=== PATIENT | female | born 1955 | race Caucasian/White ===

== ENCOUNTER 2016-05-27 00:28 | Emergency (ER) | payer OTHER ==
[2016-05-27 01:07] VITALS: TEMP 97.5; BMI 32.2
--- NOTE | 2016-05-27 01:16 | PDOC ---
History of Present Illness - History of Present Illness Initial Comments: 05/27/16 02:11 Patient is a 60 year old female with significant medical hx of DM, HLD, and gastritis who is presenting to the ED with a day and a half of nausea, epigastric pain, vomiting, and diarrhea. Patient reports that a day and a half ago developing epigastric pain and nausea. This evening she began having multiple episodes of vomiting and watery bowel movements. The patient also endorses some subjective fevers. Subjective fevers. PMD: Precious Givens MD <Kamala Garland - Last Filed: 05/27/16 03:50> <Juan Centeno - Last Filed: 05/27/16 04:24> - General Chief Complaint: Nausea/Vomiting Stated Complaint: ABD PAIN/VOMITING Past History <Kamala Garland - Last Filed: 05/27/16 03:50> - Past Medical History Anemia: No Asthma: No Cancer: Yes (UTERUS-SURGERY AND RT) Cardiac Disorders: No CVA: No COPD: No CHF: No Dementia: No Diabetes: Yes (OVER 10 YRS) GI Disorders: Yes (GASTRITIS) Disorders: No HTN: No Hypercholesterolemia: Yes Liver Disease: No Seizures: No Thyroid Disease: No - Surgical History Abdominal Surgery: No Appendectomy: No Cardiac Surgery: No Cholecystectomy: Yes Lung Surgery: No Neurologic Surgery: No Orthopedic Surgery: No - Psycho/Social/Smoking Cessation Hx Anxiety: No Suicidal Ideation: No Smoking Status: No Smoking History: Never smoked Have you smoked in the past 12 months: No Number of Cigarettes Smoked Daily: 0 Hx Alcohol Use: No Drug/Substance Use Hx: No Substance Use Type: None, Prescribed Hx Substance Use Treatment: No <Juan Centeno - Last Filed: 05/27/16 04:24> - Past Medical History Allergies/Adverse Reactions: Allergies Allergy/AdvReac Type Severity Reaction Status Date / Time No Known Allergies Allergy Verified 05/27/16 01:05 Home Medications: Ambulatory Orders Atorvastatin Ca [Lipitor] 80 mg PO HS 05/27/16 Cholecalciferol (Vitamin D3) [Vitamin D3] 1 tab PO WEEKLY 05/27/16 Empagliflozin [Jardiance] 25 mg PO DAILY 05/27/16 Insulin Glargine,Hum.rec.anlog [[place] Solostar] 30 unit SQ 05/27/16 Lisinopril [Prinivil] 5 mg PO DAILY 05/27/16 Pregabalin [Lyrica -] 75 mg PO DAILY 05/27/16 Review of Systems - Review of Systems Comments:: 05/27/16 02:23 GENERAL/CONSTITUTIONAL: Subjective fever. No chills. No weakness. HEAD, EYES, EARS, NOSE AND THROAT: No change in vision. No ear pain or discharge. No sore throat. CARDIOVASCULAR: No chest pain or shortness of breath. RESPIRATORY: No cough, wheezing, or hemoptysis. GASTROINTESTINAL: Epigastric pain, nausea, vomiting, diarrhea. No constipation. GENITOURINARY: No dysuria, frequency, or change in urination. MUSCULOSKELETAL: No joint or muscle swelling or pain. No neck or back pain. SKIN: No rash NEUROLOGIC: No headache, vertigo, loss of consciousness, or change in strength/ sensation. <Kamala Garland - Last Filed: 05/27/16 03:50> *Physical Exam - Vital Signs Last Vital Signs Temp Pulse Resp BP Pulse Ox 97.5 F L 66 18 110/67 99 05/27/16 01:05 05/27/16 01:05 05/27/16 01:05 05/27/16 01:05 05/27/16 01:05 - Physical Exam Comments: 05/27/16 02:24 GENERAL: Awake, alert, and fully oriented, in no acute distress HEAD: No signs of trauma EYES: PERRLA, EOMI, sclera anicteric, conjunctiva clear ENT: Auricles normal inspection, hearing grossly normal, nares patent, oropharynx clear without exudates. Moist mucosa NECK: Normal ROM, supple, no lymphadenopathy, JVD, or masses LUNGS: Breath sounds equal, clear to auscultation bilaterally. No wheezes, and no crackles HEART: Regular rate and rhythm, normal S1 and S2, no murmurs, rubs or gallops ABDOMEN: Soft, nontender, normoactive bowel sounds. No guarding, no rebound. No masses EXTREMITIES: Normal range of motion, no edema. No clubbing or cyanosis. No cords, erythema, or tenderness NEUROLOGICAL: Cranial nerves II through XII grossly intact. Normal speech, normal gait SKIN: Warm, Dry, normal turgor, no rashes or lesions noted. ENDOCRINE: No increased thirst. No abnormal weight change. HEMATOLOGIC/LYMPHATIC: No anemia, easy bleeding, or history of blood clots. ALLERGIC/IMMUNOLOGIC: No hives or skin allergy. <Kamala Garland - Last Filed: 05/27/16 03:50> - Vital Signs Last Vital Signs Temp Pulse Resp BP Pulse Ox 97.5 F L 66 18 110/67 99 05/27/16 01:05 05/27/16 01:05 05/27/16 01:05 05/27/16 01:05 05/27/16 01:05 <Juan Centeno - Last Filed: 05/27/16 04:24> Heart Score/ECG Review - Electrocardiogram EKG: Non specific repolarization disturbance - Age Age: 45-65 - Risk Factors Risk Factors Heart Score: Yes Hx Hypercholesterolemia, Yes Hx Hypertension, Yes Hx Diabetes #1 General ECG Interpretation: Sinus Rhythm 05/27/16 04:23 NSR 75bpm, normal axis, no LVH, nonspecific T wave abnormality <Juan Centeno - Last Filed: 05/27/16 04:24> ED Treatment Course - LABORATORY CBC & Chemistry Diagram: 05/27/16 01:09 05/27/16 01:30 - ADDITIONAL ORDERS Additional order review: Laboratory Results 05/27/16 05/27/16 05/27/16 01:41 01:30 01:30 INR Sodium 139 Potassium 4.1 Chloride 99 Carbon Dioxide 26 Anion Gap 14 BUN 29 H D Creatinine 1.0 D Creat Clearance w eGFR 56.95 POC Glucometer 330.30321 Random Glucose 324 H* D Lactic Acid 1.703 Calcium 10.0 Phosphorus 3.3 Magnesium 2.2 Total Bilirubin 0.5 D AST 16 D ALT 27 D Alkaline Phosphatase 104 Creatine Kinase 100 Troponin I < 0.02 Total Protein 7.6 Albumin 4.0 Lipase 251 Urine Color Urine Appearance Urine pH Ur Specific [place] Urine Protein Urine Glucose (UA) Urine Ketones Urine Blood Urine Nitrite Urine Bilirubin Urine Urobilinogen Ur Leukocyte Esterase 05/27/16 05/27/16 01:30 01:09 INR 0.90 Sodium Potassium Chloride Carbon Dioxide Anion Gap BUN Creatinine Creat Clearance w eGFR POC Glucometer Random Glucose Lactic Acid Calcium Phosphorus Magnesium Total Bilirubin AST ALT Alkaline Phosphatase Creatine Kinase Troponin I Total Protein Albumin Lipase Urine Color Lt. yellow Urine Appearance Clear Urine pH 6.5 Ur Specific [place] <= 1.005 Urine Protein Negative Urine Glucose (UA) 3+ H Urine Ketones Trace H Urine Blood Trace-inta Urine Nitrite Negative Urine Bilirubin Negative Urine Urobilinogen 0.2 e.u/dl Ur Leukocyte Esterase Negative 05/27/16 05/27/16 01:41 01:09 RBC 4.54 MCV 88.1 MCHC 33.3 RDW 13.3 MPV 9.4 Neutrophils % 69.9 Lymphocytes % 23.4 Monocytes % 3.7 L Eosinophils % 1.9 Basophils % 1.1 POC Glucometer 330.63718 - RADIOLOGY Radiograph Interpretation: 05/27/16 03:50 Rn Ent: ([email or web address]) Report Date: 05/27/2016 01:46:00 Report Status: Preliminary Begin of Report Content Referring Physician: Juan Centeno Patient Name: Miriam Jane THIS IS A PRELIMINARY REPORT FROM [facility] EXAM: Ultrasound abdomen limited, right upper quadrant IMAGES: 37 INDICATION: Right upper quadrant pain DATE OF SERVICE: 2016-05-27 01:46:08.0 COMPARISON: none FINDINGS: The liver is mildly fatty, without mass or biliary duct dilation. There are multiple gallstones or sludge balls without secondary findings for cholecystitis. The CBD is not dilated and measures3 millimeters in diameter. Right kidney measures 10.8centimeters in length and is unremarkable. The visualized aorta and IVC are normal. Pancreas is obscured. IMPRESSION: Multiple gallstones or sludge balls without secondary findings of cholecystitis. Mildly fatty liver. THIS DOCUMENT HAS BEEN ELECTRONICALLY SIGNED Tucker Coughlin MD 05/27/2016 02:13 JASS Coello Please call Imaging Building Services Technician [phone] ([phone]) with questions. End of Report Content - Medications Given in the ED: ED Medications Discontinued Medications Generic Name Dose Route Start Last Admin Trade Name Freq PRN Reason Stop Dose Admin Pantoprazole Sodium 80 mg/ 100 mls @ 200 mls/hr 05/27/16 01:30 05/27/16 01:48 Sodium Chloride IVPB 05/27/16 01:59 200 mls/hr ONCE ONE Administration Ondansetron HCl 4 mg 05/27/16 01:28 05/27/16 01:48 Zofran Injection IVPUSH 05/27/16 01:29 4 mg ONCE ONE Administration <Kamala Garland - Last Filed: 05/27/16 03:50> - LABORATORY CBC & Chemistry Diagram: 05/27/16 01:09 05/27/16 01:30 <Juan Centeno - Last Filed: 05/27/16 04:24> Medical Decision Making - Medical Decision Making 05/27/16 04:17 This is a 60yo F with abdominal pain and nausea. She has a negative evaluation other than stones and sludge of the GB and LFT's are wnl. serum glucose elevated with mildly elevated anion gap and normal bicarb. She is encouraged to follow up with her PMD and referral to general surgeon. Will give analgesia and antiemetics; she did as well have an episode where she felt like her throat was "closing up" however, no objective findings. She also has very bad GERD and the symptoms have abated. She is encouraged to also refrain from fried, fatty foods. EKG is reassuring. <Juan Centeno - Last Filed: 05/27/16 04:24> *DC/Admit/Observation/Transfer - Attestations Scribe Attestion: 05/27/16 02:24 Documentation prepared by Kamala Garland, acting as emergency medical service coordinator for Juan Cetneno MD. <Kamala Garland - Last Filed: 05/27/16 03:50> - Discharge Dispostion Admit: No Decision to Admit order Date/Time: 05/27/16 04:14 - Attestations Physician Attestion: 05/27/16 04:16 I, Dr. Juan Centeno MD, attest that this document has been prepared under my direction and personally reviewed by me in its entirety. I further attest, that it accurately reflects all work, treatment, procedures and medical decision -making performed by me. <Juan Centeno - Last Filed: 05/27/16 04:24> Diagnosis at time of Disposition: Gallstone Qualifiers: Cholecystitis presence: without cholecystitis Biliary obstruction: without biliary obstruction Qualified Code(s): K80.20 - Calculus of gallbladder without cholecystitis without obstruction Abdominal pain Qualifiers: Abdominal location: epigastric Qualified Code(s): R10.13 - Epigastric pain Abdominal pain Qualifiers: Abdominal location: epigastric Qualified Code(s): R10.13 - Epigastric pain - Discharge Dispostion Disposition: HOME Condition at time of disposition: Good - Referrals Referrals: Precious Givens MD [Primary Care Provider] - - Patient Instructions Additional Instructions: At this time, there is evidence of gallstones without suggestion of infection. Please follow up with your PMD within the next 24 hours for reevaluation and if there is any change otherwise in your symptoms, please return immediately to the ED. It is important for you to refrain from any fatty/fried foods.
[2016-05-27] MEDS ORDERED: ONDANSETRON 4 MG/2 ML VIAL IVPUSH ONE (01:28)
[2016-05-27] MEDS ORDERED: PANTOPRAZOLE SODIUM 80 MG in SODIUM CHLORIDE 100 ML IVPB ONE (01:30)
[2016-05-27 01:35] LABS: BASOPHIL 1.1 % (0-2.0); EOSINOPHIL 1.9 % (0-4.5); MCH 29.3 pg (25.7-33.7); MCHC 33.3 g/dl (32.0-36.0); MEAN CELL VOLUME 88.1 fl (80-96); MEAN PLT VOLUME 9.4 fl (7.5-11.1); NEUTROPHILS 69.9 % (42.8-82.8); PLATELET COUNT 263 K/MM3 (134-434); RDW 13.3 % (11.6-15.6); WHITE BLOOD COUNT 11.8 K/mm3 (4.0-10.0)
[2016-05-27 01:40] LABS: PH,URINE 6.5 (5.0-8.0); URINE APPEARANCE CLEAR; URINE BILIRUBIN NEGATIVE (NEGATIVE); URINE BLOOD TRACE-INTA (NEGATIVE); URINE COLOR LT. YELLOW; URINE GLUCOSE (UA) 3+ (NEGATIVE); URINE KETONE TRACE (NEGATIVE); URINE LEUK ESTERASE NEGATIVE (NEGATIVE); URINE NITRITE NEGATIVE (NEGATIVE); URINE PROTEIN NEGATIVE (NEGATIVE); URINE UROBILINOGEN 0.2 E.U/dl E.U./dl (0.2-1.0)
[2016-05-27] MEDS ORDERED: ONDANSETRON 4 MG/2 ML VIAL ONE (01:44)
[2016-05-27] MEDS ORDERED: PANTOPRAZOLE SODIUM 40 MG VIAL ONE (01:45)
[2016-05-27] MEDS ORDERED: ASPIRIN 81 MG CHEWABLE TABLETS PO ONE (01:47)
[2016-05-27 01:51] LABS: INR 0.9 (0.82-1.09); PROTHROMBIN TIME (PATIENT) 9.9 SEC (9.98-11.88)
[2016-05-27 02:03] LABS: ALK PHOS 104 U/L (45-117); ANION GAP 14 (8-16); BILIRUBIN,TOTAL 0.5 mg/dL (0.2-1.0); CO2 26 mmol/L (21-32); MAGNESIUM 2.2 mg/dL (1.8-2.4); PHOSPHOROUS 3.3 mg/dL (2.5-4.9); SGOT/AST 16 U/L (15-37); SGPT/ALT 27 U/L (12-78); TOT PROT 7.6 g/dl (6.4-8.2); TROPONIN I < 0.02 ng/ml (0.00-0.05)
[2016-05-27 02:07] LABS: GLUCOSE,RANDOM 324 mg/dL (74-106)
[2016-05-27 04:30] VITALS: BP 124/64; PULSE 78
--- NOTE | 2016-05-31 10:13 | EKG ---
Test Reason : Blood Pressure : / mmHG Vent. Rate : 075 BPM Atrial Rate : 075 BPM P-R Int : 120 ms QRS Dur : 080 ms QT Int : 408 ms P-R-T Axes : 023 069 044 degrees QTc Int : 455 ms POOR DATA QUALITY, INTERPRETATION MAY BE ADVERSELY AFFECTED NORMAL SINUS RHYTHM NONSPECIFIC ST ABNORMALITY ABNORMAL ECG WHEN COMPARED WITH ECG OF 26-MAY-2015 08:29, NONSPECIFIC T WAVE ABNORMALITY NOW EVIDENT IN ANTERIOR LEADS Confirmed by MAHIN SETHI MD ([id number]) on 05/31/2016 10:12:45 AM Referred By: Confirmed By:MAHIN SETHI MD
== END 2016-05-27 04:30 | disposition home or self-care (01) ==
LOC: JER 00:28
PROC: 3E033GC Introduction of Other Therapeutic Substance into Peripheral Vein, Percutaneous Approach (ICD-10-PCS; principal; 2016-05-27)
DX: K80.20 Calculus of gallbladder without cholecystitis without obstruction (principal); I10 Essential (primary) hypertension; E11.9 Type 2 diabetes mellitus without complications; Z79.4 Long term (current) use of insulin; Z79.84 Long term (current) use of oral hypoglycemic drugs; E78.00 Pure hypercholesterolemia, unspecified
CPT/HCPCS: 36415; 76705-TC; 80053; 81003; 82550; 83605; 83690; 83735; 84100; 84484; 85025; 85610; 93005; 93010; 99283-25

== ENCOUNTER 2016-06-19 05:08 | Day surgery (SDC) | payer OTHER ==
[2016-06-17 11:03] VITALS: BMI 23.6
[~2016-06-19 05:08] MED LIST: BUPIVACAINE HCL/PF 0.5% (5MG/ML) 10 ML VIAL IJ ONE
[2016-06-19] MEDS ORDERED: LIDOCAINE HCL/PF 2% SDV 5ML VIAL ONE (12:51)
[2016-06-19] MEDS ORDERED: PROPOFOL 20 ML ONE (12:52)
[2016-06-19] MEDS ORDERED: ROCURONIUM BROMIDE 50 MG/5 ML VIAL ONE (12:52)
[2016-06-19] MEDS ORDERED: MIDAZOLAM HCL 2 MG/2 ML SINGLE DOSE VIAL ONE (12:52)
--- NOTE | 2016-06-19 13:10 | HP ---
History & Physical Update - History History: No Change - Physical Physical: No Change - Assessment Assessment: No Change - Plan Plan: No Change (60 yo F presents for planned laparoscopic cholecystectomy with Dr. Lawrence. No changes to H&P present in paper chart.)
[2016-06-19] MEDS ORDERED: ceFAZolin SODIUM 1 GM VIAL ONE (13:35)
[2016-06-19] MEDS ORDERED: ePHEDrine SULFATE 50 MG/1 ML AMPULE ONE (13:39)
[2016-06-19] MEDS ORDERED: ceFAZolin SODIUM 1 GM VIAL IVPB ONE (13:40)
[2016-06-19] MEDS ORDERED: DEXAMETHASONE SOD PHOSPHATE 4 MG/1 ML VIAL ONE (13:46)
[2016-06-19] MEDS ORDERED: ONDANSETRON 4 MG/2 ML VIAL ONE (13:46)
[2016-06-19] MEDS ORDERED: GLYCOPYRROLATE 0.2 MG/1 ML VIAL ONE ×2 (14:20→14:21)
[2016-06-19] MEDS ORDERED: NEOSTIGMINE METHYLSULFATE 0.5 MG/ML - 10 ML MDV ONE (14:20)
[2016-06-19] MEDS ORDERED: KETOROLAC TROMETHAMINE 30 MG/1 ML VIAL ONE (14:21)
[2016-06-19] MEDS ORDERED: BUPIVACAINE HCL/PF 0.5% (5MG/ML) 10 ML VIAL IJ ONE (14:22)
--- NOTE | 2016-06-19 14:40 | OP ---
Operative Note - Note: Operative Date: 06/19/16 Pre-Operative Diagnosis: biliary colic Operation: laparoscopic cholecystectomy Post-Operative Diagnosis: Same as Pre-op Surgeon: Ke Lawrence Installation Specialist: Jessenia Arevalo Anesthesia: General Estimated Blood Loss (mls): 10 Operative Report Dictated: Yes
--- NOTE | 2016-06-19 14:56 | SURG ---
Surgery Crude Oil Treater Note Crude Oil Treater: Jessenia Arevalo PA-C Date of Service: 06/19/16 Diagnosis: biliary colic Procedure: laparoscopic cholecystectomy I was present for the entirety of the operative procedure. For further detail, please refer to operative report. Visit type - Case Type Case Type: Scheduled Admission - Emergency Emergency Visit: No - New patient This patient is new to me today: Yes Date on this admission: 06/19/16 - Critical Care Critical Care patient: No
[2016-06-19] MEDS ORDERED: ACETAMINOPHEN 325 MG TABLET (FP) PO PRN (15:02)
[2016-06-19] MEDS ORDERED: ACETAMINOPHEN 1000 MG/100 ML VIAL (NON FORMULARY) IVPB ONE (15:02)
[2016-06-19] MEDS ORDERED: ONDANSETRON 4 MG/2 ML VIAL IVPUSH PRN (15:02)
[2016-06-19] MEDS ORDERED: oxyCODONE HCL 5 MG TABLET PO PRN (15:02)
[2016-06-19] MEDS ORDERED: LACTATED RINGERS SOLUTION 1,000 ML IV SCH (15:15)
[2016-06-19] MEDS ORDERED: ACETAMINOPHEN INJECTION 100 ML IVPB ONE (15:17)
--- NOTE | 2016-06-19 16:08 | OP ---
DATE OF OPERATION: 06/19/2016 PREOPERATIVE DIAGNOSIS: Biliary colic and cholelithiasis. POSTOPERATIVE DIAGNOSIS: Biliary colic and cholelithiasis. PROCEDURE: Laparoscopic cholecystectomy. SURGEON: MD Jonathan ASSISTANTS: DEREK Buck COMPLICATIONS: None. BLOOD LOSS: 10 mL. SPECIMENS: Gallbladder. CONDITION: Patient tolerated the procedure well. INDICATIONS: This is a 60-year-old female with a history of diabetes and hypertension, who presents with chronic right upper quadrant abdominal pain. On ultrasound, diagnosis was noted to be secondary to gallstones. The patient was brought to the operating room for a laparoscopic cholecystectomy. Risks and benefits were discussed in advance with patient. She agreed to proceed with the plan. DESCRIPTION OF PROCEDURE: In the operating room, she was placed in supine position. After the induction of general anesthesia, she was prepped and draped in the usual sterile fashion. After standard time-out, the operation was begun with a periumbilical incision approximately 2 cm performed with the scalpel. The fascia was entered. The peritoneal cavity was accessed via standard Linda approach. In the peritoneal cavity, then a 12-mm port was introduced and insufflation to a pressure of 15 mmHg was accomplished. At this point, under direct vision, three 5-mm ports were introduced, one in the epigastrium, two in the right upper quadrant. The patient was placed in a reverse Trendelenburg position. A few of the adhesions which were encountered were taken down sharply with EndoShears. The gallbladder was retracted superiorly and laterally. The infundibulum of the gallbladder appears to be somewhat scarred and thick in terms of the quality of the tissue. However, it was dissected with relative ease using cautery and occasionally with a [place] dissector to expose the cystic duct completely. After visualization of the cystic duct, cystic artery was similarly dissected and then completely exposed. At this point, then, after establishing clearly the critical view of safety with exposure of the cystic duct to the common bile duct junction, and cystic artery within the triangle of Calot, then, Endo-clips were used to ligate the cystic duct and cystic artery. They were doubly ligated with Endo-clips and then divided with EndoShears. The gallbladder was then dissected off the liver bed with the use of cautery. Minimal bleeding was encountered from the liver bed. Bleeding was controlled with cautery. Final check for hemostasis was performed. Peritoneal cavity was irrigated and suctioned. The gallbladder was placed in an EndoCatch bag and removed through the umbilical port. The fascia at the umbilical port was closed with 0 Vicryl sutures. The skin at all port sites was closed with 4-0 Monocryl. Dermabond was applied. The patient was returned to the recovery room awake, alert, and in stable condition. She tolerated the procedure well. Mode [id number]
[2016-06-19] MEDS ORDERED: METOCLOPRAMIDE HCL INJECTION 10 MG/2 ML VIAL ONE (16:18)
[2016-06-19] MEDS ORDERED: METOCLOPRAMIDE HCL INJECTION 10 MG/2 ML VIAL IM ONE (16:19)
[2016-06-19 17:42] VITALS: TEMP 98
[2016-06-19 20:16] VITALS: BP 140/60; PULSE 70
--- NOTE | 2016-06-21 13:22 | PATH ---
Surgical Pathology Report Patient Name: ANANDA SARABIA [facility]. Rec. #: [id number] /Age/Gender: 1955 (Age: 60) / F Account: [id number] Location: AMBULATORY SURG Taken: 06/19/2016 Received: 06/20/2016 Reported: 06/21/2016 Physicians: Ke Lawrence M.D. Specimen(s) Received GALLBLADDER Clinical History Biliary colic Final Diagnosis GALLBLADDER, CHOLECYSTECTOMY: CHRONIC CHOLECYSTITIS AND CHOLELITHIASIS. ONE BENIGN APPEARING LYMPH NODE. Electronically Signed Luis Valero M.D. Gross Description Received in formalin, labeled "gallbladder" is a 6.7 x 2.5 x 1.5 cm. gallbladder with a 0.2 cm in length portion of cystic duct attached. There is a 0.5 cm greatest dimension crook periductal lymph node present. The outer surface is crook green and varies from smooth to shaggy. The lumen contains green, tenacious bile as well as multiple black, irregular choleliths ranging from 0.1-0.5 cm in greatest dimension. The mucosa is green with focal erosions. The wall of the gallbladder averages 0.1 cm in thickness. Director Of Development And Marketing sections are submitted in one cassette. 06/20/201606/20/2016
== END 2016-06-19 19:35 | disposition home or self-care (01) ==
LOC: JASUSAT 05:08
PROVIDERS: ATTEND Surgery
PROC: 0FT44ZZ Resection of Gallbladder, Percutaneous Endoscopic Approach (ICD-10-PCS; principal; 2016-06-19 11:00)
DX: K80.50 Calculus of bile duct without cholangitis or cholecystitis without obstruction (principal); K80.20 Calculus of gallbladder without cholecystitis without obstruction
CPT/HCPCS: 88304-TC; 94760

== ENCOUNTER 2016-11-29 07:00 | Day surgery (SDC) | payer OTHER ==
[2016-11-29 07:34] VITALS: BMI 23.6
[2016-11-29] MEDS ORDERED: LIDOCAINE HCL 2% (20ML MULTI-DOSE VIAL) NR ONE (08:08)
[2016-11-29 09:01] VITALS: TEMP 97.5
[2016-11-29 09:49] VITALS: BP 148/62; PULSE 65
--- NOTE | 2016-12-02 13:19 | PATH ---
Surgical Pathology Report Patient Name: ANANDA SARABIA [facility]. Rec. #: [id number] /Age/Gender: 1955 (Age: 60) / F Account: [id number] Location: U-ENDOSCOPY Taken: 11/29/2016 Received: 11/29/2016 Reported: 12/02/2016 Physicians: Dony Cardenas M.D. Specimen(s) Received A: BX STOMACH B: BX POLYPS DESCENDING COLON C: BX POLYPS TRANSVERSE COLON D: BX RIGHT COLON Clinical History Epigastric pain Erosive gastritis, rectosigmoid colitis, polyp, redundant colon, hemorrhoids Final Diagnosis A. STOMACH, BIOPSY: GASTRIC FUNDIC MUCOSA WITH FOCAL HYPERPLASTIC CHANGES. IMMUNOSTAIN FOR H. PYLORI IS NEGATIVE. B. COLON, DESCENDING, BIOPSY: TUBULAR ADENOMA. C. COLON, TRANSVERSE, BIOPSY: TUBULAR ADENOMA. D. COLON, LEFT, BIOPSY: COLONIC MUCOSA WITH FOLLICULAR HYPERPLASIA OF MUCOSA ASSOCIATED LYMPHOID TISSUE. NO ADENOMATOUS CHANGES IDENTIFIED. Electronically Signed Jose Luis Tellez M.D. Gross Description A. Received in formalin, labeled "biopsy stomach" are 2 crook, irregular portions of soft tissue measuring 0.2 and 0.4 cm. in greatest dimension. The specimens are submitted in toto in one cassette. B. Received in formalin, labeled "polyps descending colon" are 2 crook, irregular to polypoid portions of soft tissue measuring 0.3 and 0.5 cm. in greatest dimension. The specimens are submitted in toto in one cassette. C. Received in formalin, labeled "polyp transverse colon" is a crook, irregular portion of soft tissue measuring 0.3 cm. in greatest dimension. The specimen is submitted in toto in one cassette. D. Received in formalin, labeled "biopsy left colon" are 4 crook, irregular portions of soft tissue ranging from 0.2-0.6 cm. in greatest dimension. The specimens are submitted in toto in one cassette. 11/29/201611/29/2016
== END 2016-11-29 09:59 | disposition home or self-care (01) ==
LOC: JASU-ENDO 07:00
PROVIDERS: ATTEND Internal Medicine Gastroenterology
PROC: 0DBL8ZX Excision of Transverse Colon, Via Natural or Artificial Opening Endoscopic, Diagnostic (ICD-10-PCS; 2016-11-29)
PROC: 0DB68ZX Excision of Stomach, Via Natural or Artificial Opening Endoscopic, Diagnostic (ICD-10-PCS; 2016-11-29)
PROC: 0DBM8ZX Excision of Descending Colon, Via Natural or Artificial Opening Endoscopic, Diagnostic (ICD-10-PCS; principal; 2016-11-29 08:00)
DX: K52.9 Noninfective gastroenteritis and colitis, unspecified (principal); D12.4 Benign neoplasm of descending colon; D12.3 Benign neoplasm of transverse colon; K64.8 Other hemorrhoids; K29.60 Other gastritis without bleeding
CPT/HCPCS: 88305-TC; 88342-TC

== ENCOUNTER 2017-07-07 15:06 | Inpatient (IN) | payer OTHER ==
--- NOTE | 2017-07-07 15:24 | PDOC ---
Rapid Medical Evaluation Time Seen by Provider: 07/07/17 15:19 Medical Evaluation: Allergies Allergy/AdvReac Type Severity Reaction Status Date / Time No Known Allergies Allergy Verified 06/19/16 09:33 I have performed a brief in-person evaluation of this patient. The patient presents with a chief complaint of: sent by Dr. King for admission to Dr. Givens for wound/PVD Pertinent physical exam findings: necrosis to tip of right big toe with surrounding erythema I have ordered the following: labs, foot xray, doppler LE The patient will proceed to the ED for further evaluation.
[2017-07-07 15:25] VITALS: BMI 21.9
[2017-07-07 16:22] LABS: BASO % 1.3 % (0-2.0); EOS % 2.9 % (0-4.5); HEMATOCRIT 37.5 % (32.4-45.2); HEMOGLOBIN 12.7 GM/dL (10.7-15.3); LYMPH % 32.3 % (8-40); MCH 30.7 pg (25.7-33.7); MEAN CELL VOLUME 90.3 fl (80-96); MEAN PLT VOLUME 8.1 fl (7.5-11.1); MONO % 5.9 % (3.8-10.2); NEUT % 57.6 % (42.8-82.8); PLATELET COUNT 331 K/MM3 (134-434); RBC 4.15 M/mm3 (3.60-5.2); RDW 13.7 % (11.6-15.6); WHITE BLOOD COUNT 6.5 K/mm3 (4.0-10.0)
[2017-07-07 16:52] LABS: ALBUMIN 3.7 g/dl (3.4-5.0); ANION GAP 2 (8-16); BILIRUBIN,TOTAL 0.3 mg/dL (0.2-1.0); BLOOD UREA NITROGEN 21 mg/dL (7-18); CALCIUM 9.1 mg/dL (8.5-10.1); CHLORIDE 108 mmol/L (98-107); CO2 28 mmol/L (21-32); CREATININE 0.7 mg/dL (0.55-1.02); GLUCOSE,RANDOM 159 mg/dL (74-106); SGPT/ALT 32 U/L (12-78); SODIUM 138 mmol/L (136-145); TOT PROT 8.1 g/dl (6.4-8.2)
[2017-07-07 16:53] LABS: ALK PHOS 118 U/L (45-117)
[2017-07-07 16:58] LABS: POTASSIUM 4.6 mmol/L (3.5-5.1); SGOT/AST 26 U/L (15-37)
--- NOTE | 2017-07-07 17:31 | PDOC ---
History of Present Illness - General History Source: Patient Exam Limitations: No Limitations - History of Present Illness Initial Comments: 07/07/17 20:02 The patient is a 61 year old female with a significant past medical history of diabetes, gastritis, HTN, and HLD who presents to the emergency department for evaluation of supposed left foot infection. The patient was seen by her food service helper Dr. King today, where he observed purulent drainage from left big toe, necrotic tip of left toe, and erythema on left foot up to ankle, which prompted him to refer the patient to the emergency department for IV antibiotics. Dr. King also requested further consults due to concern for peripheral vascular disease. The patient reports associated symptom of chills. She denies chest pain, shortness of breath, headache, and dizziness. Denies fevers, nausea, vomiting, diarrhea, and constipation. Denies dysuria, frequency, urgency, and hematuria. Allergies: NKA Past surgical history: Cholecystectomy (06/24), Hysterectomy () Social history: No reported cigarette, alcohol, or drug use. PCP: Dr. Givens <Levy Kirby - Last Filed: 07/07/17 20:02> <Lelo Lott - Last Filed: 07/07/17 20:55> - General Chief Complaint: Wound Stated Complaint: admission SEND BY MD Time Seen by Provider: 07/07/17 15:19 Past History <Levy Kirby - Last Filed: 07/07/17 20:02> - Past Medical History Anemia: No Asthma: No Cancer: Yes (UTERUS-SURGERY AND RT??) Cardiac Disorders: No CVA: No COPD: No CHF: No Dementia: No Diabetes: Yes GI Disorders: Yes (GASTRITIS, ADHESIONS) Disorders: No HTN: Yes Hypercholesterolemia: Yes Liver Disease: No Seizures: No Thyroid Disease: No - Surgical History Abdominal Surgery: No Appendectomy: No Cardiac Surgery: No Cholecystectomy: Yes (06/24) Lung Surgery: No Neurologic Surgery: No Orthopedic Surgery: No - Suicide/Smoking/Psychosocial Hx Smoking Status: No Smoking History: Never smoked Have you smoked in the past 12 months: No Number of Cigarettes Smoked Daily: 0 Information on smoking cessation initiated: No Hx Alcohol Use: No Drug/Substance Use Hx: No Substance Use Type: None, Prescribed Hx Substance Use Treatment: No <Lelo Lott - Last Filed: 07/07/17 20:55> - Past Medical History Allergies/Adverse Reactions: Allergies Allergy/AdvReac Type Severity Reaction Status Date / Time No Known Allergies Allergy Verified 07/07/17 15:21 Home Medications: Ambulatory Orders Atorvastatin Ca [Lipitor] 80 mg PO HS 05/27/16 Cholecalciferol (Vitamin D3) [Vitamin D3] 1 tab PO WEEKLY 05/27/16 Empagliflozin [Jardiance] 25 mg PO DAILY 05/27/16 Insulin Glargine,Hum.rec.anlog [[place] Solostar] 45 unit SQ HS 05/27/16 Lisinopril [Prinivil] 5 mg PO DAILY 05/27/16 Pregabalin [Lyrica -] 75 mg PO DAILY 05/27/16 Review of Systems - Review of Systems Able to Perform ROS?: Yes Comments:: CONSTITUTIONAL: (+)Chills. Absent: fever, diaphoresis, generalized weakness, malaise, loss of appetite HEENT: Absent: rhinorrhea, nasal congestion, throat pain, throat swelling, difficulty swallowing, mouth swelling, ear pain, eye pain, visual Changes CARDIOVASCULAR: Absent: chest pain, syncope, palpitations, irregular heart rate, lightheadedness , peripheral edema RESPIRATORY: Absent: cough, shortness of breath, dyspnea with exertion, orthopnea, wheezing, stridor, hemoptysis GASTROINTESTINAL: Absent: abdominal pain, abdominal distension, nausea, vomiting, diarrhea, constipation, melena, hematochezia GENITOURINARY: Absent: dysuria, frequency, urgency, hesitancy, hematuria, flank pain, genital pain MUSCULOSKELETAL: Absent: myalgia, arthralgia, joint swelling EXTREMITIES: (+)Left foot erythema. SKIN: Absent: rash, itching, pallor HEMATOLOGIC/IMMUNOLOGIC: Absent: easy bleeding, easy bruising, lymphadenopathy, frequent infections ENDOCRINE: Absent: unexplained weight gain, unexplained weight loss, heat intolerance, cold intolerance NEUROLOGIC: Absent: headache, focal weakness or paresthesias, dizziness, unsteady gait, seizure, mental status changes, bladder or bowel incontinence PSYCHIATRIC: Absent: anxiety, depression, suicidal or homicidal ideation, hallucinations. <Levy Kirby - Last Filed: 07/07/17 20:02> *Physical Exam - Vital Signs Last Vital Signs Temp Pulse Resp BP Pulse Ox 98.5 F 76 18 128/67 98 07/07/17 15:21 07/07/17 19:24 07/07/17 19:24 07/07/17 19:24 07/07/17 19:24 - Physical Exam Comments: GENERAL: Well developed, well nourished. Awake and alert. No acute distress. HEENT: Normocephalic, atraumatic. PERRLA, EOMI. No conjunctival pallor. Sclera are non- icteric. Moist mucous membranes. Oropharynx is clear. NECK: Supple. Full ROM. No JVD. Carotid pulses 2+ and symmetric, without bruits. No thyromegaly. No lymphadenopathy. CARDIOVASCULAR: Regular rate and rhythm. No murmurs, rubs, or gallops. Distal pulses are 2+ and symmetric. PULMONARY: No evidence of respiratory distress. Lungs clear to auscultation bilaterally. No wheezing, rales or rhonchi. ABDOMINAL: Soft. Non-tender. Non-distended. No rebound or guarding. No organomegaly. Normoactive bowel sounds. MUSCULOSKELETAL Normal range of motion at all joints. No bony deformities or tenderness. No CVA tenderness. EXTREMITIES: (+) Cellulitic left foot. (+)Necrotic tip of toe on left foot. (+)Left foot erythematous up to ankle. SKIN: Warm and dry. Normal capillary refill. No rashes. No jaundice. NEUROLOGICAL: Alert, awake, appropriate. Cranial nerves 2-12 intact. No deficits to light touch and temperature in face, upper extremities and lower extremities. No motor deficits in the in face, upper extremities and lower extremities. Normoreflexic in the upper and lower extremities. Normal speech. Toes are down- going bilaterally. PSYCHIATRIC: Cooperative. Good eye contact. Appropriate mood and affect. <Levy Kirby - Last Filed: 07/07/17 20:02> - Vital Signs Last Vital Signs Temp Pulse Resp BP Pulse Ox 98.5 F 78 18 148/66 100 07/07/17 15:21 07/07/17 15:21 07/07/17 15:21 07/07/17 15:21 07/07/17 15:21 <Lelo Lott - Last Filed: 07/07/17 20:55> ED Treatment Course - LABORATORY CBC & Chemistry Diagram: 07/07/17 16:12 07/07/17 16:12 - ADDITIONAL ORDERS Additional order review: Laboratory Results 07/07/17 16:12 Sodium 138 Potassium 4.6 Chloride 108 H Carbon Dioxide 28 Anion Gap 2 L BUN 21 H Creatinine 0.7 Creat Clearance w eGFR > 60 Random Glucose 159 H Calcium 9.1 Total Bilirubin 0.3 D AST 26 ALT 32 Alkaline Phosphatase 118 H Total Protein 8.1 Albumin 3.7 07/07/17 16:12 RBC 4.15 MCV 90.3 MCHC 34.0 RDW 13.7 MPV 8.1 D Neutrophils % 57.6 Lymphocytes % 32.3 D Monocytes % 5.9 Eosinophils % 2.9 Basophils % 1.3 - Medications Given in the ED: ED Medications Discontinued Medications Generic Name Dose Route Start Last Admin Trade Name Freq PRN Reason Stop Dose Admin Piperacillin Sod/Tazobactam 50 mls @ 100 mls/hr 07/07/17 19:15 07/07/17 19:38 Sod 3.375 gm/ Dextrose IVPB 07/07/17 19:44 100 mls/hr ONCE ONE Administration Protocol <Levy Kirby - Last Filed: 07/07/17 20:02> - LABORATORY CBC & Chemistry Diagram: 07/07/17 16:12 07/07/17 16:12 - ADDITIONAL ORDERS Additional order review: Laboratory Results 07/07/17 16:12 Sodium 138 Potassium 4.6 Chloride 108 H Carbon Dioxide 28 Anion Gap 2 L BUN 21 H Creatinine 0.7 Creat Clearance w eGFR > 60 Random Glucose 159 H Calcium 9.1 Total Bilirubin 0.3 D AST 26 ALT 32 Alkaline Phosphatase 118 H Total Protein 8.1 Albumin 3.7 07/07/17 16:12 RBC 4.15 MCV 90.3 MCHC 34.0 RDW 13.7 MPV 8.1 D Neutrophils % 57.6 Lymphocytes % 32.3 D Monocytes % 5.9 Eosinophils % 2.9 Basophils % 1.3 <Lelo Lott - Last Filed: 07/07/17 20:55> Medical Decision Making - Medical Decision Making 07/07/17 17:31 11-year-old female referred for admission food service helper, Dr. Nakul KING on ultrasound to be admitted by her PCP, Dr GIVENS He is requesting a vascular surgical consult for evaluation. Peripheral circulation Infectious disease consult for wound care, CBC, sedimentation rate, chemistry, hemoglobin H1 CVA, foot x-rays 3 views, Dr. of her lower extremities and Zantac and dressing to the left foot daily. It is paced to Dr. Kenyatta García who said that Dr. HERNANDEZ TO admit. However, since it is past 5:00 this will be a hospitalist admission. Well-nourished well-developed Vietnamese-speaking 61-year-old female in no acute distress 07/07/17 20:[address] Zavala, the radiologist and the arterial Doppler did not show any significant peripheral vascular disease <Lelo Lott - Last Filed: 07/07/17 20:55> *DC/Admit/Observation/Transfer - Attestations Scribe Attestion: Documentation prepared by Levy Kirby, acting as diploma medical assistant for Lelo Lott MD. <Levy Kirby - Last Filed: 07/07/17 20:02> - Discharge Dispostion Admit: Yes <Lelo Lott - Last Filed: 07/07/17 20:55> Diagnosis at time of Disposition: Diabetic foot infection Cellulitis Qualifiers: Site of cellulitis: extremity Site of cellulitis of extremity: toe Laterality: left Qualified Code(s): L03.032 - Cellulitis of left toe
[2017-07-07] MEDS ORDERED: PIPERACILLIN/TAZOB 3.375 GM 3.375 GM in DEXTROSE 5%-WATER - 50 ML IVPB ONE (19:15)
[2017-07-07 19:24] LABS: ERYTHROCYTE SEDIMENTATION RATE 50 mm/hr (0-30)
[2017-07-07] MEDS ORDERED: VANCOMYCIN 1 GM PREMIX - 1 GM/200 ML BAG IVPB ONE (19:35)
[2017-07-07] MEDS ORDERED: PIPERACILLIN/TAZOB 3.375 GM 3.375 GM/50 ML BAG IVPB ONE (19:36)
--- NOTE | 2017-07-07 19:45 | HP ---
Admitting History and Physical - Primary Care Physician PCP: Romario Foster - Admission Chief Complaint: L- Foot Pain, Swelling, Numbness History of Present Illness: 61 y/o woman PMH Uterine Ca (surgery, ?RT), DM, HTN, HLD, Gastritis. Who presents to the ED from the [employer]'s office for admission, left toe Necrosis , erythema, swelling, pain to left foot. Patient reports that her left foot and left toe #2 has been painful, swollen, reddened x 2 weeks. Patient reports wearing sandals at home, not walking barefoot. Patient denies fall or trauma. Patient reports having constant numbness and tingling to her feet which she attributes to her Diabetes. Patient reports having subjective fevers and chills at home. Patient denies cough, SOB, dizziness, GEORGE, CP, palpitations, AP, N/V/D, constipation, dysuria. History Source: Patient, Significant Other, Medical Record Limitations to Obtaining History: No Limitations - Past Medical History Cardiovascular: Yes: HTN, Hyperlipdemia Gastrointestinal: Yes: Gastritis Hepatobiliary: Yes: Cholelithiasis Endocrine: Yes: Diabetes Mellitus - Past Surgical History Past Surgical History: Yes: Cholecystectomy - Smoking History Smoking history: Never smoked Have you smoked in the past 12 months: No Aproximately how many cigarettes per day: 0 - Alcohol/Substance Use Hx Alcohol Use: No History of Substance Use: reports: None - Social History Usual Living Arrangement: Yes: With Spouse ADL: Independent History of Recent Travel: No Home Medications - Allergies Allergies/Adverse Reactions: Allergies Allergy/AdvReac Type Severity Reaction Status Date / Time No Known Allergies Allergy Verified 07/07/17 15:21 - Home Medications Home Medications: Ambulatory Orders Atorvastatin Ca [Lipitor] 80 mg PO HS 05/27/16 Cholecalciferol (Vitamin D3) [Vitamin D3] 1 tab PO WEEKLY 05/27/16 Empagliflozin [Jardiance] 25 mg PO DAILY 05/27/16 Insulin Glargine,Hum.rec.anlog [[place]] 45 unit SQ HS 05/27/16 Lisinopril [Prinivil] 5 mg PO DAILY 05/27/16 Pregabalin [Lyrica -] 75 mg PO DAILY 05/27/16 Home Medications (free text): Updated Med List from patient: Lipitor 80mg po HS. Jardiance 25mg po Daily. Insulin Glargine, Hum. rec. 50 unit SQ HS. Lisinopril 5mg po Daily. Lyrica 75mg po Daily Family Disease History - Family Disease History Family History: Unable to Obtain Review of Systems - Review of Systems Constitutional: reports: Chills, Fever Eyes: reports: No Symptoms HENT: reports: No Symptoms Neck: reports: No Symptoms Cardiovascular: reports: No Symptoms Respiratory: reports: No Symptoms Gastrointestinal: reports: No Symptoms Genitourinary: reports: No Symptoms Breasts: reports: No Symptoms Reported Musculoskeletal: reports: Extremity Pain, Joint Swelling Integumentary: reports: Change in Color, Erythema, Wound Neurological: reports: Numbness Endocrine: reports: No Symptoms Hematology/Lymphatic: reports: No Symptoms Psychiatric: reports: No Symptoms Pain Intensity: 8 Physical Examination Vital Signs: Vital Signs Temperature 98.5 F 07/07/17 15:21 Pulse Rate 76 07/07/17 19:24 Respiratory Rate 18 07/07/17 19:24 Blood Pressure 128/67 07/07/17 19:24 O2 Sat by Pulse Oximetry (%) 98 07/07/17 19:24 Constitutional: Yes: Well Nourished, No Distress, Calm Eyes: Yes: WNL, Conjunctiva Clear, PERRL HENT: Yes: WNL, Atraumatic, Normocephalic Neck: Yes: WNL, Supple, Trachea Midline Cardiovascular: Yes: WNL, Regular Rate and Rhythm, S1, S2 Respiratory: Yes: WNL, Regular, CTA Bilaterally Gastrointestinal: Yes: Normal Bowel Sounds, Soft, Tenderness (RUQ) ...Rectal Exam: Yes: Deferred Renal/: Yes: WNL Breast(s): Yes: WNL Musculoskeletal: Yes: WNL Extremities: Yes: Erythema (L-foot), Other ((+) Cellulitic left foot. (+) Necrotic tip of toe on left foot. (+)Left foot erythematous up to ankle) Edema: Yes Edema: LLE: 1+ (foot) Peripheral Pulses WNL: Yes Integumentary: Yes: Erythema (left foot) Wound/Incision: Yes: Reddened, Other (necrosis- eschar to left toe) Neurological: Yes: WNL, Alert, Oriented ...Motor Strength: WNL Psychiatric: Yes: WNL, Alert, Oriented Labs: CBC, BMP 07/07/17 16:12 07/07/17 16:12 Laboratory Results - last 24 hr 07/07/17 07/07/17 07/07/17 16:12 16:12 20:55 WBC 6.5 D RBC 4.15 Hgb 12.7 Hct 37.5 MCV 90.3 MCH 30.7 MCHC 34.0 RDW 13.7 Plt Count 331 D MPV 8.1 D Neutrophils % 57.6 Lymphocytes % 32.3 D Monocytes % 5.9 Eosinophils % 2.9 Basophils % 1.3 ESR 50 H PT with INR 10.40 INR 0.92 PTT (Actin FS) Sodium 138 Potassium 4.6 Chloride 108 H Carbon Dioxide 28 Anion Gap 2 L BUN 21 H Creatinine 0.7 Creat Clearance w eGFR > 60 Random Glucose 159 H Calcium 9.1 Total Bilirubin 0.3 D AST 26 ALT 32 Alkaline Phosphatase 118 H Total Protein 8.1 Albumin 3.7 Blood Type Antibody Screen 07/07/17 07/07/17 20:55 20:55 WBC RBC Hgb Hct MCV MCH MCHC RDW Plt Count MPV Neutrophils % Lymphocytes % Monocytes % Eosinophils % Basophils % ESR PT with INR INR PTT (Actin FS) 34.4 Sodium Potassium Chloride Carbon Dioxide Anion Gap BUN Creatinine Creat Clearance w eGFR Random Glucose Calcium Total Bilirubin AST ALT Alkaline Phosphatase Total Protein Albumin Blood Type A POSITIVE Antibody Screen Negative Intake & Output 07/05/17 07/06/17 07/07/17 07/08/17 23:59 23:59 23:59 23:59 Weight 59.874 kg Current Medications Generic Name Dose Route Start Last Admin Trade Name Adriaq PRN Reason Stop Dose Admin Atorvastatin Calcium 80 mg 07/07/17 22:00 07/07/17 23:54 Lipitor - PO 80 mg HS [facility] Administration Heparin Sodium (Porcine) 5,000 unit 07/07/17 22:00 07/07/17 23:26 Heparin - SQ Not Given BID [facility] Piperacillin Sod/Tazobactam 50 mls @ 100 mls/hr 07/08/17 02:00 Sod 3.375 gm/ Dextrose IVPB Q8H-IV [facility] Protocol Piperacillin Sod/Tazobactam 50 mls @ 100 mls/hr 07/08/17 02:00 Sod 3.375 gm/ Dextrose IVPB 05/01/18 02:29 ONCE ONE Vancomycin HCl 1,000 mg/ 250 mls @ 166.667 mls/hr 07/08/17 10:00 Dextrose IVPB Q12H COUNT INCLUDES THE [facility] Protocol Lisinopril 5 mg 07/08/17 10:00 Prinivil PO DAILY [facility] Pregabalin 75 mg 07/08/17 10:00 Lyrica - PO DAILY [facility] Imaging - Results Chest X-ray: Image Reviewed X-ray: Image Reviewed Ultrasound: Image Reviewed EKG: Pending Problem List - Problems (1) Diabetic foot infection Assessment/Plan: - ESR-50 - No leukocytosis, no neutrophlia - Left foot/ankle xray- image reviewed, report pending - Duplex artery left foot- image reviewed, awaiting report - Zosyn, Vancomycin given in ED, continue - ID Consult - Vascular Consult probable debridement - Wound Care - Neurochecks - Elevate extremity - CBCD, BMP in am Code(s): E11.628 - TYPE 2 DIABETES MELLITUS WITH OTHER SKIN COMPLICATIONS; L08.9 - LOCAL INFECTION OF THE SKIN AND SUBCUTANEOUS TISSUE, UNSP (2) Cellulitis Assessment/Plan: - ESR 50 - Blood Cultures-pending - Zosyn, Vancomycin given in ED, will continue - Appreciate ID consult - Monitor CBC, BMP - Monitor vitals - Elevate extremity Code(s): L03.90 - CELLULITIS, UNSPECIFIED Qualifiers: Site of cellulitis: extremity Site of cellulitis of extremity: toe Laterality: left Qualified Code(s): L03.032 - Cellulitis of left toe (3) Diabetes mellitus Assessment/Plan: - Stable - BGMs - ISS when diet is resumed - Hold Jardiance for tighter glycemic control Code(s): E11.9 - TYPE 2 DIABETES MELLITUS WITHOUT COMPLICATIONS (4) HTN (hypertension) Assessment/Plan: - Stable - Monitor BP - Continue Lisinopril - Monitor renal function Code(s): I10 - ESSENTIAL (PRIMARY) HYPERTENSION (5) HLD (hyperlipidemia) Assessment/Plan: - Continue Lipitor Code(s): E78.5 - HYPERLIPIDEMIA, UNSPECIFIED (6) DVT prophylaxis Assessment/Plan: - OOB - Heparin SQ Code(s): [id number] - Assessment/Plan 61 y/o woman PMH DM, HTN, HLD, Gastritis, Uterine Ca (Surgery, ?RT). Admitted for Toe Necrosis, Cellulitis Visit type - Emergency Visit Emergency Visit: Yes ED Registration Date: 07/07/17 Care time: The patient presented to the Emergency Department on the above date and was hospitalized for further evaluation of their emergent condition. - New Patient This patient is new to me today: Yes Date on this admission: 07/07/17 - Critical Care Critical Care patient: No Hospitalist Screening - Colonoscopy Questionnaire Colonoscopy Questionnaire: Colonoscopy Questionnaire - Patient: 50 - 75 years old and never had a screening colonoscopy: No History of colon or rectal polyps, or CA: No History of IBD, Crohn's disease or UC: No History of abdominal radiation therapy as a child: No - Relative: 1 with colon or rectal CA, or polyps at age 60 or younger: No Colon or rectal CA diagnosed at age 45 or younger: No Multiple relatives with colon or rectal CA: No - Outcome: Screening Result: Negative Screen
[2017-07-07] MEDS ORDERED: VANCOMYCIN 1 GRAM (PRE-DOCKED) 1,000 MG/250 ML BAG IVPB ONE (20:44)
[2017-07-07 21:52] LABS: INR 0.92 (0.82-1.09); PROTHROMBIN TIME (PATIENT) 10.4 SEC (9.7-13.0)
[2017-07-07] MEDS: HEPARIN NA (PORCINE) 5,000 UNITS/ML 1ML VIAL SQ SCH (23:26)
[2017-07-07] MEDS: ATORVASTATIN CA 80 MG TABLET (FP) PO SCH (23:54)
[2017-07-08] MEDS ORDERED: DEXTROSE 5%-WATER - 50 ML IVPB ONE ×2 (00:45→13:07)
[2017-07-08] MEDS ORDERED: PIPERACILLIN/TAZOBACTAM 3.375 GM VIAL IVPB ONE ×2 (00:45→13:06)
[2017-07-08] MEDS ORDERED: PIPERACILLIN/TAZOB 3.375 GM 3.375 GM in DEXTROSE 5%-WATER - 50 ML IVPB SCH (02:00)
[2017-07-08] MEDS ORDERED: PIPERACILLIN/TAZOB 3.375 GM 3.375 GM in DEXTROSE 5%-WATER - 50 ML IVPB ONE (02:00)
[2017-07-08 07:35] LABS: BASO % 0.5 % (0-2.0); HEMATOCRIT 34.5 % (32.4-45.2); HEMOGLOBIN 11.6 GM/dL (10.7-15.3); LYMPH % 33.4 % (8-40); MCH 30.4 pg (25.7-33.7); MCHC 33.7 g/dl (32.0-36.0); MEAN CELL VOLUME 90.3 fl (80-96); MEAN PLT VOLUME 7.9 fl (7.5-11.1); MONO % 7.2 % (3.8-10.2); NEUT % 55.9 % (42.8-82.8); PLATELET COUNT 307 K/MM3 (134-434); RBC 3.82 M/mm3 (3.60-5.2); RDW 13.5 % (11.6-15.6); WHITE BLOOD COUNT 6.4 K/mm3 (4.0-10.0)
--- NOTE | 2017-07-08 08:41 | PN ---
Progress Note, Physician - Current Medication List Current Medications: Active Medications Atorvastatin Calcium (Lipitor -) 80 mg PO HS [facility] Last Admin: 07/07/17 23:54 Dose: 80 mg Heparin Sodium (Porcine) (Heparin -) 5,000 unit SQ BID [facility] Last Admin: 07/07/17 23:26 Dose: Not Given Piperacillin Sod/Tazobactam (Sod 3.375 gm/ Dextrose) 50 mls @ 100 mls/hr IVPB Q8H-IV [facility] PRN Reason: Protocol Vancomycin HCl 1,000 mg/ (Dextrose) 250 mls @ 166.667 mls/hr IVPB Q12H [facility] PRN Reason: Protocol Lisinopril (Prinivil) 5 mg PO DAILY [facility] Pregabalin (Lyrica -) 75 mg PO DAILY [facility] - Objective Vital Signs: Vital Signs Temperature 98.1 F 07/08/17 08:30 Pulse Rate 76 07/08/17 08:30 Respiratory Rate 20 07/08/17 08:30 Blood Pressure 114/59 07/08/17 08:30 O2 Sat by Pulse Oximetry (%) 98 07/07/17 23:00 Labs: CBC, BMP 07/08/17 06:32 INR, PTT INR 0.92 (0.82-1.09) 07/07/17 20:55 Problem List - Problems (1) Diabetic foot ulcer Assessment/Plan: - ESR-50 - No leukocytosis, no neutrophlia - Left foot/ankle xray- image reviewed, report pending - Duplex artery left foot- image reviewed, awaiting report - Zosyn, Vancomycin given in ED, continue - ID Consult - Vascular Consult probable debridement - Wound Care - Neurochecks - Elevate extremity - CBCD, BMP in am Code(s): E11.621 - TYPE 2 DIABETES MELLITUS WITH FOOT ULCER; L97.509 - NON- PRESSURE CHRONIC ULCER OTH PRT UNSP FOOT W UNSP SEVERITY (2) Cellulitis Assessment/Plan: - ESR 50 - Blood Cultures-pending - Zosyn, Vancomycin given in ED, will continue - Appreciate ID consult - Monitor CBC, BMP - Monitor vitals - Elevate extremity Code(s): L03.90 - CELLULITIS, UNSPECIFIED Qualifiers: Site of cellulitis: extremity Site of cellulitis of extremity: toe Laterality: left Qualified Code(s): L03.032 - Cellulitis of left toe (3) Diabetes mellitus Assessment/Plan: - Stable - BGMs - ISS when diet is resumed - Hold Jardiance for tighter glycemic control Code(s): E11.9 - TYPE 2 DIABETES MELLITUS WITHOUT COMPLICATIONS (4) HTN (hypertension) Assessment/Plan: - Stable - Monitor BP - Continue Lisinopril - Monitor renal function Code(s): I10 - ESSENTIAL (PRIMARY) HYPERTENSION
[2017-07-08 08:48] LABS: ANION GAP 7 (8-16); BLOOD UREA NITROGEN 19 mg/dL (7-18); CALCIUM 9.1 mg/dL (8.5-10.1); CHLORIDE 107 mmol/L (98-107); CO2 28 mmol/L (21-32); CREATININE 0.7 mg/dL (0.55-1.02); GLUCOSE,RANDOM 76 mg/dL (74-106); POTASSIUM 4.4 mmol/L (3.5-5.1); SODIUM 142 mmol/L (136-145)
[2017-07-08] MEDS ORDERED: VANCOMYCIN 1,000 MG in DEXTROSE 5%-WATER - 250 ML IVPB SCH (10:00)
[2017-07-08] MEDS: PREGABALIN 75 MG CAPSULE PO SCH (10:22)
[2017-07-08] MEDS: HEPARIN NA (PORCINE) 5,000 UNITS/ML 1ML VIAL SQ SCH ×2 (10:22→21:53)
[2017-07-08] MEDS: LISINOPRIL 5 MG TABLET (FP) PO SCH (10:22)
--- NOTE | 2017-07-08 10:30 | PN ---
Progress Note (short form) - Note Progress Note: VASCULAR SURGERY - BERONICA DARIUSZ Sent to the ED from her [employer]er's office for admission 2/2 left toe necrosis , erythema, swelling, pain to left foot. States left foot and left toe #2 has been painful, swollen, reddened x 2 weeks. She is a DM. Denies trauma to foot, or wearing tight shoes, constant numbness and tingling to her feet bilat. Last Vital Signs Temp Pulse Resp BP Pulse Ox 98.1 F 66 20 130/60 98 07/08/17 08:30 07/08/17 10:15 07/08/17 10:15 07/08/17 10:15 07/07/17 23:00 CBC, BMP 07/08/17 06:32 07/08/17 06:32 INR, PTT INR 0.92 (0.82-1.09) 07/07/17 20:55 PE Gen: alert. nad LE: Right--> slight petechial rash to dorsum of foot just proximal toes. foot warm. dopplerable pt/dp Left --> petechial rash to dorsum of foot just proximal toes and lateral aspect of 5th digit. foot warm. hard to assess DP/PT. Distal tip of hallux with dry gangrene. Surrounding erythema without induration or bogginess. Slightly tender to palpation. Dopplerable DP/PT. No evidence of rest pain Problem List - Problems (1) Diabetic foot ulcer Assessment/Plan: Dopplerable PT Cont medical management at this time Daily dressing changes with Santyly to left hallux Pain management PRN A1C Above plan discussed with Dr. Cary and agrees. Code(s): E11.621 - TYPE 2 DIABETES MELLITUS WITH FOOT ULCER; L97.509 - NON- PRESSURE CHRONIC ULCER OTH PRT UNSP FOOT W UNSP SEVERITY Qualifiers: Diabetic foot ulcer location: toe Laterality: left
--- NOTE | 2017-07-08 11:16 | PN ---
Progress Note (short form) - Note Progress Note: ID Consult dictated Diabetic foot infection Diabetic peripheral neuropathy R/O peripheral vascular disease Probable "red man syndrome" Continue empiric zosyn. Rechallange vancomycin Surgical follow up vascular workup
[2017-07-08] MEDS ORDERED: VANCOMYCIN 1 GM PREMIX - 1 GM/200 ML BAG IVPB SCH (12:00)
--- NOTE | 2017-07-08 12:07 | CONS ---
DATE OF CONSULTATION: HISTORY: The patient is a 61-year-old diabetic female with a history of diabetic peripheral neuropathy evaluated for left foot infection. This patient states approximately 2 weeks ago she sustained a superficial cut to the left great toe. She was seen by her primary doctor and was referred to Podiatry. She reports that subsequently she had trimming of her toenails. She reports that over the past 2 weeks she has had worsening erythema, pain, and swelling of the left foot. She was seen in follow up by Podiatry and found to have a necrotic tip of the left great toe. She was referred to the hospital for further evaluation. At the present time, she complains of pain of the left foot. She reports there was purulent drainage noted from the left great toe. She denies any associated fevers or chills. While receiving vancomycin, the patient complained of generalized pruritus, however, denies occurrence of rash. PAST MEDICAL HISTORY: Positive for diabetes mellitus, hypertension, hyperlipidemia, diabetic peripheral neuropathy, gastritis, uterine cancer. PAST SURGICAL HISTORY: Status post cholecystectomy and hysterectomy. ALLERGIES: No known allergies. MEDICATIONS: Include Lipitor, insulin, lisinopril, Lyrica, Jardiance. SOCIAL HISTORY: She resides at home. She is a nonsmoker, nondrinker. SYSTEMS REVIEW: Neurologic: No loss of consciousness, seizure activity, focal weakness. Cardiac: Negative chest pain or palpitations. Respiratory: Negative cough or sputum production. Gastrointestinal: Negative vomiting or diarrhea. Genitourinary: Negative for urinary tract infection. LABORATORY DATA: White count 6.4, hematocrit 34.5, platelet count 307, BUN 19, creatinine 0.7, ESR 50. X-ray negative for fracture or dislocation. PHYSICAL EXAMINATION: General: She is awake and alert. Seated in bed. Vital Signs: Temperature 98.1, blood pressure 130/60, pulse 66 and regular, respirations 20 per minute. HEENT: Sclerae anicteric. Heart: Sounds S1, S2. Lungs: Clear. Abdomen: Soft. No tenderness elicited. No mass, rebound, or rigidity. Extremities: Examination of the left foot, there is a necrotic eschar present at the distal aspect of the left great toe. There is erythema and swelling of the left great toe extending to the dorsum of the left foot at the base of all of the toes. There is erythema present along the lateral aspect of the left foot as well as the left heel area. IMPRESSION: 1. Diabetic foot infection. 2. Diabetic peripheral neuropathy. 3. Possible peripheral vascular disease. 4. Probable red man syndrome secondary to vancomycin. PLAN: We will continue empiric vancomycin and Zosyn pending cultures. Surgical evaluation. Vascular workup. We will follow. Thank you for the kind referral. MAHIN RAE M.D. [id number]
[2017-07-08] MEDS ORDERED: diphenhydrAMINE HCL 25 MG CAPSULE (FP) PO SCH (13:15)
[2017-07-08] MEDS: PIPERACILLIN/TAZOB 3.375 GM 3.375 GM in DEXTROSE 5%-WATER - 50 ML IVPB SCH ×2 (13:53→17:34)
[2017-07-08] MEDS: diphenhydrAMINE HCL 25 MG CAPSULE (FP) PO SCH (14:11)
[2017-07-08] MEDS: VANCOMYCIN 1 GM PREMIX - 1 GM/200 ML BAG IVPB SCH (15:25)
[2017-07-08] MEDS: ATORVASTATIN CA 80 MG TABLET (FP) PO SCH (21:53)
[2017-07-09] MEDS ORDERED: PIPERACILLIN/TAZOBACTAM 3.375 GM VIAL IVPB ONE ×3 (00:08→18:48)
[2017-07-09] MEDS ORDERED: DEXTROSE 5%-WATER - 50 ML IVPB ONE ×3 (00:08→18:49)
[2017-07-09] MEDS: PIPERACILLIN/TAZOB 3.375 GM 3.375 GM in DEXTROSE 5%-WATER - 50 ML IVPB SCH ×3 (05:11→19:47)
[2017-07-09] MEDS: diphenhydrAMINE HCL 25 MG CAPSULE (FP) PO SCH ×2 (05:11→14:54)
[2017-07-09] MEDS: VANCOMYCIN 1 GM PREMIX - 1 GM/200 ML BAG IVPB SCH ×2 (05:12→16:00)
--- NOTE | 2017-07-09 08:03 | PN ---
Progress Note (short form) - Note Progress Note: awaiting CTA aortogram with b/l LE runoff to be read.
--- NOTE | 2017-07-09 08:57 | PN ---
Progress Note, Physician - Current Medication List Current Medications: Active Medications Atorvastatin Calcium (Lipitor -) 80 mg PO HS [facility] Last Admin: 07/08/17 21:53 Dose: 80 mg Diphenhydramine HCl (Benadryl -) 25 mg PO Q12H [facility] Last Admin: 07/09/17 05:11 Dose: 25 mg Heparin Sodium (Porcine) (Heparin -) 5,000 unit SQ BID [facility] Last Admin: 07/08/17 21:53 Dose: 5,000 unit Piperacillin Sod/Tazobactam (Sod 3.375 gm/ Dextrose) 50 mls @ 100 mls/hr IVPB Q8H-IV [facility] PRN Reason: Protocol Last Admin: 07/09/17 05:11 Dose: 100 mls/hr Vancomycin HCl (Vancomycin 1 Gm Premix -) 1 gm in 200 mls @ 133.333 mls/hr IVPB Q12H [facility] PRN Reason: Protocol Last Admin: 07/09/17 05:12 Dose: 133.333 mls/hr Lisinopril (Prinivil) 5 mg PO DAILY [facility] Last Admin: 07/08/17 10:22 Dose: 5 mg Pregabalin (Lyrica -) 75 mg PO DAILY [facility] Last Admin: 07/08/17 10:22 Dose: 75 mg - Objective Vital Signs: Vital Signs Temperature 98.0 F 07/09/17 06:00 Pulse Rate 66 07/09/17 06:00 Respiratory Rate 20 07/09/17 06:00 Blood Pressure 109/50 07/09/17 06:00 O2 Sat by Pulse Oximetry (%) 95 07/08/17 21:00 Cardiovascular: Yes: Regular Rate and Rhythm Respiratory: Yes: Regular, CTA Bilaterally Gastrointestinal: Yes: Normal Bowel Sounds, Soft Labs: CBC, BMP 07/08/17 06:32 07/08/17 06:32 INR, PTT INR 0.92 (0.82-1.09) 07/07/17 20:55 Problem List - Problems (1) Diabetic foot ulcer Assessment/Plan: - ESR-50 - No leukocytosis, no neutrophlia - Left foot/ankle xray- image reviewed, report pending - Duplex artery left foot-CTA done , awaiting report - Zosyn, Vancomycin given in ED, continue - ID Consult - Vascular Consult probable debridement - Wound Care - Neurochecks - Elevate extremity Code(s): E11.621 - TYPE 2 DIABETES MELLITUS WITH FOOT ULCER; L97.509 - NON- PRESSURE CHRONIC ULCER OTH PRT UNSP FOOT W UNSP SEVERITY Qualifiers: Diabetic foot ulcer location: toe Laterality: left (2) Cellulitis Assessment/Plan: - ESR 50 - Blood Cultures-pending - Zosyn, Vancomycin given in ED, will continue - Appreciate ID consult - Monitor CBC, BMP - Monitor vitals - Elevate extremity Code(s): L03.90 - CELLULITIS, UNSPECIFIED Qualifiers: Site of cellulitis: extremity Site of cellulitis of extremity: toe Laterality: left Qualified Code(s): L03.032 - Cellulitis of left toe (3) Diabetes mellitus Assessment/Plan: - Stable - BGMs - ISS when diet is resumed - Hold Jardiance for tighter glycemic control - endo Code(s): E11.9 - TYPE 2 DIABETES MELLITUS WITHOUT COMPLICATIONS (4) HTN (hypertension) Assessment/Plan: - Stable - Monitor BP - Continue Lisinopril - Monitor renal function Code(s): I10 - ESSENTIAL (PRIMARY) HYPERTENSION
[2017-07-09] MEDS: LISINOPRIL 5 MG TABLET (FP) PO SCH (09:52)
[2017-07-09] MEDS: PREGABALIN 75 MG CAPSULE PO SCH (09:52)
[2017-07-09] MEDS: HEPARIN NA (PORCINE) 5,000 UNITS/ML 1ML VIAL SQ SCH ×2 (09:52→21:56)
--- NOTE | 2017-07-09 10:31 | EKG ---
Test Reason : Blood Pressure : / mmHG Vent. Rate : 062 BPM Atrial Rate : 062 BPM P-R Int : 144 ms QRS Dur : 090 ms QT Int : 424 ms P-R-T Axes : 049 068 038 degrees QTc Int : 430 ms NORMAL SINUS RHYTHM NORMAL ECG WHEN COMPARED WITH ECG OF 27-MAY-2016 01:38, NO SIGNIFICANT CHANGE WAS FOUND Confirmed by NARENDRA OREILLY MD ([id number]) on 07/09/2017 10:30:45 AM Referred By: Confirmed By:NARENDRA OREILLY MD
[2017-07-09] MEDS ORDERED: INSULIN SLIDING SCALE (NOVOLOG) 1 VIAL SQ SCH (11:00)
--- NOTE | 2017-07-09 12:31 | CONSULT ---
Consult Consult Specialty:: endocrine Referred by:: dr.annabi landaverde Reason for Consultation:: diabetes mellitus / neuropathy - History of Present Illness Chief Complaint: high sugars History of Present Illness: 61 y/o woman PMH Uterine Ca (surgery, ?RT), DM, HTN, HLD, Gastritis. 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 Patient reports that her left foot and left toe #2 has been painful, swollen, reddened x 2 weeks. Patient foot infection started as scratch over tip of large toe then progressed to swelling reddness and dark skin over tip of left toe with necrotic looking wound requiring admission to hospital. her blood sugars have been elevated despite taking diabetic medication and insulin - History Source History Provided By: Patient - Past Medical History Cardio/Vascular: Yes: HTN, Hyperlipdemia Gastrointestinal: Yes: Gastritis Hepatobiliary: Yes: Cholelithiasis ...: No Endocrine: Yes: Diabetes Mellitus - Past Surgical History Past Surgical History: Yes: Cholecystectomy - Alcohol/Substance Use Hx Alcohol Use: No History of Substance Use: reports: None - Smoking History Smoking history: Never smoked Have you smoked in the past 12 months: No Aproximately how many cigarettes per day: 0 - Social History ADL: Independent History of Recent Travel: No Home Medications - Allergies Allergies/Adverse Reactions: Allergies Allergy/AdvReac Type Severity Reaction Status Date / Time No Known Allergies Allergy Verified 07/07/17 15:21 - Home Medications Home Medications: Ambulatory Orders Atorvastatin Ca [Lipitor] 80 mg PO HS 05/27/16 Cholecalciferol (Vitamin D3) [Vitamin D3] 1 tab PO WEEKLY 05/27/16 Empagliflozin [Jardiance] 25 mg PO DAILY 05/27/16 Insulin Glargine,Hum.rec.anlog [Sugar Elmore] 45 unit SQ HS 05/27/16 Lisinopril [Prinivil] 5 mg PO DAILY 05/27/16 Pregabalin [Lyrica -] 75 mg PO DAILY 05/27/16 Review of Systems - Review of Systems Constitutional: reports: Weakness Eyes: reports: No Symptoms HENT: reports: No Symptoms Neck: reports: No Symptoms Cardiovascular: reports: No Symptoms Respiratory: reports: No Symptoms Gastrointestinal: reports: Diarrhea, Nausea Genitourinary: reports: No Symptoms Breasts: reports: No Symptoms Reported Musculoskeletal: reports: Extremity Pain, Muscle Pain, Muscle Cramps Integumentary: reports: No Symptoms Neurological: reports: Numbness, Weakness Endocrine: reports: Unexplained Weight Loss Physical Exam Vital Signs: Vital Signs Temperature 98.0 F 07/09/17 06:00 Pulse Rate 80 07/09/17 09:30 Respiratory Rate 18 07/09/17 09:30 Blood Pressure 118/62 07/09/17 09:30 O2 Sat by Pulse Oximetry (%) 95 07/08/17 21:00 Constitutional: Yes: Anxious Eyes: Yes: EOM Intact HENT: Yes: Normocephalic Neck: Yes: Trachea Midline Cardiovascular: Yes: Regular Rate and Rhythm Respiratory: Yes: CTA Bilaterally Gastrointestinal: Yes: Normal Bowel Sounds ...Rectal Exam: Yes: Deferred Renal/: Yes: WNL Musculoskeletal: Yes: WNL Extremities: Yes: Delayed Capillary Refill Edema: No Peripheral Pulses WNL: No Wound/Incision: Yes: Open to air, Excoriated, Other (necrotic left great toe) Neurological: Yes: Alert, Oriented Labs: CBC, BMP 07/08/17 06:32 07/08/17 06:32 Problem List - Problems (1) Cellulitis Code(s): L03.90 - CELLULITIS, UNSPECIFIED Qualifiers: Site of cellulitis: extremity Site of cellulitis of extremity: toe Laterality: left Qualified Code(s): L03.032 - Cellulitis of left toe (2) DVT prophylaxis Code(s): [id number] - (3) Diabetes mellitus Code(s): E11.9 - TYPE 2 DIABETES MELLITUS WITHOUT COMPLICATIONS (4) Diabetic foot infection Code(s): E11.628 - TYPE 2 DIABETES MELLITUS WITH OTHER SKIN COMPLICATIONS; L08.9 - LOCAL INFECTION OF THE SKIN AND SUBCUTANEOUS TISSUE, UNSP (5) Diabetic foot ulcer Code(s): E11.621 - TYPE 2 DIABETES MELLITUS WITH FOOT ULCER; L97.509 - NON- PRESSURE CHRONIC ULCER OTH PRT UNSP FOOT W UNSP SEVERITY Qualifiers: Diabetic foot ulcer location: toe Laterality: left (6) HLD (hyperlipidemia) Code(s): E78.5 - HYPERLIPIDEMIA, UNSPECIFIED Assessment/Plan Current Active Problems Cellulitis (Acute) DVT prophylaxis (Acute) Diabetes mellitus (Acute) Diabetic foot infection (Acute) Diabetic foot ulcer (Acute) HLD (hyperlipidemia) (Acute) Laboratory Results - last 24 hr 07/09/17 11:49 POC Glucometer 210 Laboratory Tests 07/07/17 07/07/17 07/08/17 16:12 16:12 06:32 WBC 6.4 RBC 3.82 Hgb 11.6 Hct 34.5 MCV 90.3 MCH 30.4 MCHC 33.7 RDW 13.5 Plt Count 307 Sodium Potassium Chloride Carbon Dioxide Anion Gap BUN Creatinine POC Glucometer Random Glucose 159 H Hemoglobin A1c % 9.5 H Calcium 07/08/17 07/09/17 06:32 11:49 WBC RBC Hgb Hct MCV MCH MCHC RDW Plt Count Sodium 142 Potassium 4.4 Chloride 107 Carbon Dioxide 28 Anion Gap 7 L BUN 19 H Creatinine 0.7 POC Glucometer 210 Random Glucose 76 Hemoglobin A1c % Calcium 9.1 plan: bgm qid novolog insulin doses levemir 28 am levemir 10units hs vascular consultation lipid levels
--- NOTE | 2017-07-09 14:50 | CON.CARD ---
Consult Consult Specialty:: Cardiology Reason for Consultation:: preop - History of Present Illness History of Present Illness: 61 y/o woman PMH Uterine Ca (surgery, ?RT), DM, HTN, HLD, Gastritis. 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 Debridement may be planned. There is no prior history of CAD. ambulating without chest pain or dyspnea. Able to walk 1 flight of stairs limited by poor balance. - History Source History Provided By: Patient, Medical Record Limitations to Obtaining History: No Limitations - Past Medical History Cardio/Vascular: Yes: HTN, Hyperlipdemia Gastrointestinal: Yes: Gastritis Hepatobiliary: Yes: Cholelithiasis ...: No Endocrine: Yes: Diabetes Mellitus - Past Surgical History Past Surgical History: Yes: Cholecystectomy - Alcohol/Substance Use Hx Alcohol Use: No History of Substance Use: reports: None - Smoking History Smoking history: Never smoked Have you smoked in the past 12 months: No Aproximately how many cigarettes per day: 0 - Social History ADL: Independent History of Recent Travel: No Home Medications - Allergies Allergies/Adverse Reactions: Allergies Allergy/AdvReac Type Severity Reaction Status Date / Time No Known Allergies Allergy Verified 07/07/17 15:21 - Home Medications Home Medications: Ambulatory Orders Atorvastatin Ca [Lipitor] 80 mg PO HS 05/27/16 Cholecalciferol (Vitamin D3) [Vitamin D3] 1 tab PO WEEKLY 05/27/16 Empagliflozin [Jardiance] 25 mg PO DAILY 05/27/16 Insulin Glargine,Hum.rec.anlog [Sugar Elmore] 45 unit SQ HS 05/27/16 Lisinopril [Prinivil] 5 mg PO DAILY 05/27/16 Pregabalin [Lyrica -] 75 mg PO DAILY 05/27/16 Review of Systems - Review of Systems Constitutional: reports: Chills, Fever Eyes: reports: No Symptoms HENT: reports: No Symptoms Neck: reports: No Symptoms Cardiovascular: denies: Chest Pain, Edema, Palpitations, Shortness of Breath Respiratory: denies: Cough, Exercise Intolerance Gastrointestinal: reports: No Symptoms Genitourinary: reports: No Symptoms Vital Signs: Vital Signs Temperature 98.2 F 07/09/17 14:08 Pulse Rate 82 07/09/17 14:08 Respiratory Rate 20 07/09/17 14:08 Blood Pressure 128/60 07/09/17 14:08 O2 Sat by Pulse Oximetry (%) 95 07/08/17 21:00 Constitutional: Yes: Well Nourished, No Distress, Calm Eyes: Yes: Conjunctiva Clear, EOM Intact HENT: Yes: Atraumatic, Normocephalic Neck: Yes: Supple, Trachea Midline Respiratory: Yes: Regular, CTA Bilaterally Gastrointestinal: Yes: Normal Bowel Sounds, Soft Cardiovascular: Yes: Regular Rate and Rhythm JVD: No Carotid Bruit: No PMI: Non-Displaced Heart Sounds: Yes: S1, S2. No: Clicks, Gallop, Rub Murmur: No: Systolic Murmur, Diastolic Murmur Edema: No - Other Data Labs, Other Data: CBC, BMP 07/08/17 06:32 07/08/17 06:32 INR, PTT INR 0.92 (0.82-1.09) 07/07/17 20:55 NSR no STT changes Problem List - Problems (1) Cellulitis Code(s): L03.90 - CELLULITIS, UNSPECIFIED Qualifiers: Site of cellulitis: extremity Site of cellulitis of extremity: toe Laterality: left Qualified Code(s): L03.032 - Cellulitis of left toe (2) Diabetic foot infection Code(s): E11.628 - TYPE 2 DIABETES MELLITUS WITH OTHER SKIN COMPLICATIONS; L08.9 - LOCAL INFECTION OF THE SKIN AND SUBCUTANEOUS TISSUE, UNSP Assessment/Plan ADMITTED WITH LOWER EXTREMITY INFECTION No cardiac contraindication to debredement. No further cardiac testing is advised. Pt is at low risk. Will see as needed.
[2017-07-09] MEDS: INSULIN SLIDING SCALE (NOVOLOG) 1 VIAL SQ SCH ×2 (17:49→21:56)
[2017-07-09] MEDS ORDERED: INSULIN (NOVOLOG) ASPART 100 UNITS/ML 10ML VIAL ONE (21:23)
[2017-07-09] MEDS: INSULIN (LEVEMIR) 100 UNITS/ML UNITS SQ SCH (21:55)
[2017-07-09] MEDS: ATORVASTATIN CA 80 MG TABLET (FP) PO SCH (21:56)
--- NOTE | 2017-07-09 22:58 | PN ---
Progress Note, Physician History of Present Illness: Reports less foot pain and swelling No fever/ chills BC prelim no growth - Current Medication List Current Medications: Active Medications Atorvastatin Calcium (Lipitor -) 80 mg PO HS [facility] Last Admin: 07/09/17 21:56 Dose: 80 mg Diphenhydramine HCl (Benadryl -) 25 mg PO Q12H [facility] Last Admin: 07/09/17 14:54 Dose: 25 mg Heparin Sodium (Porcine) (Heparin -) 5,000 unit SQ BID [facility] Last Admin: 07/09/17 21:56 Dose: 5,000 unit Piperacillin Sod/Tazobactam (Sod 3.375 gm/ Dextrose) 50 mls @ 100 mls/hr IVPB Q8H-IV [facility] PRN Reason: Protocol Last Admin: 07/09/17 19:47 Dose: 100 mls/hr Vancomycin HCl (Vancomycin 1 Gm Premix -) 1 gm in 200 mls @ 133.333 mls/hr IVPB Q12H [facility] PRN Reason: Protocol Last Admin: 07/09/17 16:00 Dose: 133.333 mls/hr Insulin Aspart (Novolog Vial Sliding Scale -) 1 vial SQ ACHS [facility] PRN Reason: Protocol Last Admin: 07/09/17 21:56 Dose: 5 units Insulin Detemir (Levemir Vial) 28 units SQ AM [facility] Insulin Detemir (Levemir Vial) 10 units SQ HS [facility] Last Admin: 07/09/17 21:55 Dose: 10 units Lisinopril (Prinivil) 5 mg PO DAILY [facility] Last Admin: 07/09/17 09:52 Dose: 5 mg Pregabalin (Lyrica -) 75 mg PO DAILY [facility] Last Admin: 07/09/17 09:52 Dose: 75 mg - Objective Vital Signs: Vital Signs Temperature 98.7 F 07/09/17 18:23 Pulse Rate 68 07/09/17 18:23 Respiratory Rate 20 07/09/17 18:23 Blood Pressure 127/64 07/09/17 18:23 O2 Sat by Pulse Oximetry (%) 98 07/09/17 09:00 Constitutional: Yes: No Distress Cardiovascular: Yes: Regular Rate and Rhythm, S1, S2 Respiratory: Yes: CTA Bilaterally Gastrointestinal: Yes: Normal Bowel Sounds, Soft Extremities: Yes: Other (decreased foot swelling and erythema) Labs: CBC, BMP 07/08/17 06:32 07/08/17 06:32 INR, PTT INR 0.92 (0.82-1.09) 07/07/17 20:55 Assessment/Plan Cellulitis v. ischemic foot Gangrene L great toe Diabetic peripheral neuropathy Peripheral vascular disease Continue empiric zosyn/vancomycin
[2017-07-10] MEDS ORDERED: DEXTROSE 5%-WATER - 50 ML IVPB ONE ×3 (02:04→17:11)
[2017-07-10] MEDS ORDERED: PIPERACILLIN/TAZOBACTAM 3.375 GM VIAL IVPB ONE ×3 (02:04→17:11)
[2017-07-10] MEDS: PIPERACILLIN/TAZOB 3.375 GM 3.375 GM in DEXTROSE 5%-WATER - 50 ML IVPB SCH ×3 (02:28→19:52)
[2017-07-10] MEDS: diphenhydrAMINE HCL 25 MG CAPSULE (FP) PO SCH ×2 (02:29→14:47)
[2017-07-10] MEDS: VANCOMYCIN 1 GM PREMIX - 1 GM/200 ML BAG IVPB SCH ×2 (02:53→15:40)
[2017-07-10] MEDS: INSULIN (LEVEMIR) 100 UNITS/ML UNITS SQ SCH ×2 (06:34→21:20)
[2017-07-10] MEDS: INSULIN SLIDING SCALE (NOVOLOG) 1 VIAL SQ SCH ×4 (06:35→21:22)
[2017-07-10] MEDS ORDERED: INSULIN (NOVOLOG) ASPART 100 UNITS/ML 10ML VIAL ONE (06:41)
--- NOTE | 2017-07-10 08:35 | PN ---
Progress Note, Physician - Current Medication List Current Medications: Active Medications Atorvastatin Calcium (Lipitor -) 80 mg PO HS [facility] Last Admin: 07/09/17 21:56 Dose: 80 mg Diphenhydramine HCl (Benadryl -) 25 mg PO Q12H [facility] Last Admin: 07/10/17 02:29 Dose: 25 mg Heparin Sodium (Porcine) (Heparin -) 5,000 unit SQ BID [facility] Last Admin: 07/09/17 21:56 Dose: 5,000 unit Piperacillin Sod/Tazobactam (Sod 3.375 gm/ Dextrose) 50 mls @ 100 mls/hr IVPB Q8H-IV [facility] PRN Reason: Protocol Last Admin: 07/10/17 02:28 Dose: 100 mls/hr Vancomycin HCl (Vancomycin 1 Gm Premix -) 1 gm in 200 mls @ 133.333 mls/hr IVPB Q12H [facility] PRN Reason: Protocol Last Admin: 07/10/17 02:53 Dose: 133.333 mls/hr Insulin Aspart (Novolog Vial Sliding Scale -) 1 vial SQ ACHS [facility] PRN Reason: Protocol Last Admin: 07/10/17 06:35 Dose: Not Given Insulin Detemir (Levemir Vial) 28 units SQ AM [facility] Last Admin: 07/10/17 06:34 Dose: 28 units Insulin Detemir (Levemir Vial) 10 units SQ HS [facility] Last Admin: 07/09/17 21:55 Dose: 10 units Lisinopril (Prinivil) 5 mg PO DAILY [facility] Last Admin: 07/09/17 09:52 Dose: 5 mg Pregabalin (Lyrica -) 75 mg PO DAILY [facility] Last Admin: 07/09/17 09:52 Dose: 75 mg - Objective Vital Signs: Vital Signs Temperature 98.2 F 07/10/17 06:00 Pulse Rate 65 07/10/17 06:00 Respiratory Rate 18 07/10/17 06:00 Blood Pressure 128/64 07/10/17 06:00 O2 Sat by Pulse Oximetry (%) 98 07/09/17 21:00 Cardiovascular: Yes: Regular Rate and Rhythm Respiratory: Yes: Regular, CTA Bilaterally Gastrointestinal: Yes: Normal Bowel Sounds, Soft Labs: CBC, BMP 07/08/17 06:32 07/08/17 06:32 INR, PTT INR 0.92 (0.82-1.09) 04/30/18 20:55 Problem List - Problems (1) Diabetic foot ulcer Assessment/Plan: - ESR-50 - No leukocytosis, no neutrophlia - Left foot/ankle xray- image reviewed, report pending - Duplex artery left foot-CTA done-results noted--vascular follow up - Zosyn, Vancomycin given in ED, continue - ID Consult - Vascular Consult probable debridement - Wound Care - Neurochecks - Elevate extremity Code(s): E11.621 - TYPE 2 DIABETES MELLITUS WITH FOOT ULCER; L97.509 - NON- PRESSURE CHRONIC ULCER OTH PRT UNSP FOOT W UNSP SEVERITY Qualifiers: Diabetic foot ulcer location: toe Laterality: left (2) Cellulitis Assessment/Plan: - ESR 50 - Blood Cultures-pending - Zosyn, Vancomycin given in ED, will continue - Appreciate ID consult - Monitor CBC, BMP - Monitor vitals - Elevate extremity Code(s): L03.90 - CELLULITIS, UNSPECIFIED Qualifiers: Site of cellulitis: extremity Site of cellulitis of extremity: toe Laterality: left Qualified Code(s): L03.032 - Cellulitis of left toe (3) Diabetes mellitus Assessment/Plan: - Stable - BGMs - ISS when diet is resumed - Hold Jardiance for tighter glycemic control - endo Code(s): E11.9 - TYPE 2 DIABETES MELLITUS WITHOUT COMPLICATIONS (4) HTN (hypertension) Assessment/Plan: - Stable - Monitor BP - Continue Lisinopril - Monitor renal function Code(s): I10 - ESSENTIAL (PRIMARY) HYPERTENSION (5) PAD (peripheral artery disease) Assessment/Plan: -Vascular consult Code(s): I73.9 - PERIPHERAL VASCULAR DISEASE, UNSPECIFIED
--- NOTE | 2017-07-10 09:51 | PN ---
Progress Note (short form) - Note Progress Note: CTA w/ bilat LE runoff Infrapopliteal flow provided by right & left LIZ with diminutive flow to right & left Peroneal and TA. An area of short segmental occlusion. Predominant flow to plantar via the LIZ via transmetatarsal flow. No vascular surgical intervention. Cont conservative medical management Local wound care to [facility] Pod[facility]ry f/u On behalf of Dr. Cary, thank you for the opportunity to participate in your patient's care Problem List - Problems (1) Diabetic foot ulcer Code(s): E11.621 - TYPE 2 DIABETES MELLITUS WITH FOOT ULCER; L97.509 - NON- PRESSURE CHRONIC ULCER OTH PRT UNSP FOOT W UNSP SEVERITY Qualifiers: Diabetic foot ulcer location: toe Laterality: left
[2017-07-10] MEDS: PREGABALIN 75 MG CAPSULE PO SCH (10:37)
[2017-07-10] MEDS: HEPARIN NA (PORCINE) 5,000 UNITS/ML 1ML VIAL SQ SCH ×2 (10:38→21:21)
[2017-07-10] MEDS: LISINOPRIL 5 MG TABLET (FP) PO SCH (10:38)
[2017-07-10] MEDS ORDERED: PT OWN MED DRAWER 7, Y5N ONE (15:21)
--- NOTE | 2017-07-10 15:24 | PN ---
Progress Note, Physician History of Present Illness: Reports less foot pain and swelling No fever/ chills BC no growth Vascular follow up noted - Current Medication List Current Medications: Active Medications Atorvastatin Calcium (Lipitor -) 80 mg PO HS [facility] Last Admin: 07/09/17 21:56 Dose: 80 mg Diphenhydramine HCl (Benadryl -) 25 mg PO Q12H [facility] Last Admin: 07/10/17 14:47 Dose: 25 mg Heparin Sodium (Porcine) (Heparin -) 5,000 unit SQ BID [facility] Last Admin: 07/10/17 10:38 Dose: 5,000 unit Piperacillin Sod/Tazobactam (Sod 3.375 gm/ Dextrose) 50 mls @ 100 mls/hr IVPB Q8H-IV [facility] PRN Reason: Protocol Last Admin: 07/10/17 10:38 Dose: 100 mls/hr Vancomycin HCl (Vancomycin 1 Gm Premix -) 1 gm in 200 mls @ 133.333 mls/hr IVPB Q12H [facility] PRN Reason: Protocol Last Admin: 07/10/17 02:53 Dose: 133.333 mls/hr Insulin Aspart (Novolog Vial Sliding Scale -) 1 vial SQ ACHS [facility] PRN Reason: Protocol Last Admin: 07/10/17 11:34 Dose: 5 units Insulin Detemir (Levemir Vial) 28 units SQ AM [facility] Last Admin: 07/10/17 06:34 Dose: 28 units Insulin Detemir (Levemir Vial) 10 units SQ HS [facility] Last Admin: 07/09/17 21:55 Dose: 10 units Lisinopril (Prinivil) 5 mg PO DAILY [facility] Last Admin: 07/10/17 10:38 Dose: 5 mg Pregabalin (Lyrica -) 75 mg PO DAILY [facility] Last Admin: 07/10/17 10:37 Dose: 75 mg - Objective Vital Signs: Vital Signs Temperature 99.3 F 07/10/17 14:49 Pulse Rate 79 07/10/17 14:49 Respiratory Rate 20 07/10/17 14:49 Blood Pressure 104/56 07/10/17 14:56 O2 Sat by Pulse Oximetry (%) 98 07/10/17 09:00 Constitutional: Yes: No Distress Cardiovascular: Yes: Regular Rate and Rhythm, S1, S2 Respiratory: Yes: CTA Bilaterally Gastrointestinal: Yes: Normal Bowel Sounds, Soft. No: Other Extremities: Yes: Other (necrotic eschar, tip of L great toe, Decreased swelling. Foot more violaceous) Labs: CBC, BMP 07/08/17 06:32 07/08/17 06:32 INR, PTT INR 0.92 (0.82-1.09) 07/07/17 20:55 Assessment/Plan Cellulitis v. ischemic foot Gangrene L great toe Diabetic peripheral neuropathy Peripheral vascular disease D/C vancomycin May substitute po Augmentin next 24h
[2017-07-10] MEDS: ATORVASTATIN CA 80 MG TABLET (FP) PO SCH (21:21)
[2017-07-11] MEDS ORDERED: PIPERACILLIN/TAZOBACTAM 3.375 GM VIAL IVPB ONE ×2 (00:13→09:23)
[2017-07-11] MEDS ORDERED: DEXTROSE 5%-WATER - 50 ML IVPB ONE ×2 (00:14→09:23)
[2017-07-11] MEDS: diphenhydrAMINE HCL 25 MG CAPSULE (FP) PO SCH (02:00)
[2017-07-11] MEDS: PIPERACILLIN/TAZOB 3.375 GM 3.375 GM in DEXTROSE 5%-WATER - 50 ML IVPB SCH ×2 (02:00→09:33)
[2017-07-11] MEDS: VANCOMYCIN 1 GM PREMIX - 1 GM/200 ML BAG IVPB SCH (02:31)
[2017-07-11] MEDS: INSULIN SLIDING SCALE (NOVOLOG) 1 VIAL SQ SCH (06:46)
[2017-07-11] MEDS: INSULIN (LEVEMIR) 100 UNITS/ML UNITS SQ SCH (06:47)
--- NOTE | 2017-07-11 08:53 | DS ---
Physical Examination Vital Signs: Vital Signs Temperature 97.8 F 07/11/17 01:46 Pulse Rate 65 07/11/17 01:46 Respiratory Rate 18 07/11/17 01:46 Blood Pressure 117/55 07/11/17 01:46 O2 Sat by Pulse Oximetry (%) 98 07/10/17 09:00 Cardiovascular: Yes: Regular Rate and Rhythm Respiratory: Yes: Regular, CTA Bilaterally Extremities: Yes: Erythema (imporoving), Other (wound with eschar) Labs: CBC, BMP 07/08/17 06:32 07/08/17 06:32 Discharge Summary Reason For Visit: DIABETIC FOOT INFECTION,INFLUENZA Current Active Problems Cellulitis (Acute) DVT prophylaxis (Acute) Diabetes mellitus (Acute) Diabetic foot infection (Acute) Diabetic foot ulcer (Acute) HLD (hyperlipidemia) (Acute) PAD (peripheral artery disease) (Acute) Hospital Course: - Problems (1) Diabetic foot ulcer Assessment/Plan: - ESR-50 - No leukocytosis, no neutrophlia - Left foot/ankle xray- image reviewed, report pending - Duplex artery left foot-CTA done-results noted--vascular follow up - Zosyn, Vancomycin given in ED, continue - ID Consult - Vascular Consult --No surgical intervention - Wound Care - Neurochecks - Elevate extremity Code(s): E11.621 - TYPE 2 DIABETES MELLITUS WITH FOOT ULCER; L97.509 - NON- PRESSURE CHRONIC ULCER OTH PRT UNSP FOOT W UNSP SEVERITY Qualifiers: Diabetic foot ulcer location: toe Laterality: left (2) Cellulitis Assessment/Plan: - PO abx--Augmentin - ESR 50 - Blood Cultures-pending - Zosyn, Vancomycin given in ED--off - Appreciate ID consult - Monitor CBC, BMP - Monitor vitals - Elevate extremity Code(s): L03.90 - CELLULITIS, UNSPECIFIED Qualifiers: Site of cellulitis: extremity Site of cellulitis of extremity: toe Laterality: left Qualified Code(s): L03.032 - Cellulitis of left toe (3) Diabetes mellitus Assessment/Plan: - Stable - BGMs - ISS when diet is resumed - Hold Jardiance for tighter glycemic control - endo Code(s): E11.9 - TYPE 2 DIABETES MELLITUS WITHOUT COMPLICATIONS (4) HTN (hypertension) Assessment/Plan: - Stable - Monitor BP - Continue Lisinopril - Monitor renal function Code(s): I10 - ESSENTIAL (PRIMARY) HYPERTENSION (5) PAD (peripheral artery disease) Assessment/Plan: -Vascular consult--no intervention Code(s): I73.9 - PERIPHERAL VASCULAR DISEASE, UNSPECIFIED Condition: Improved - Instructions Referrals: Precious Givens MD [Primary Care Provider] - 1 Week - Home Medications Comprehensive Discharge Medication List: Ambulatory Orders Atorvastatin Ca [Lipitor] 80 mg PO HS 05/27/16 Cholecalciferol (Vitamin D3) [Vitamin D3] 1 tab PO WEEKLY 05/27/16 Lisinopril [Prinivil] 5 mg PO DAILY 05/27/16 Pregabalin [Lyrica -] 75 mg PO DAILY 05/27/16 Amoxicillin/Potassium Clav [Augmentin 875-125 Tablet] 1 each PO BID #14 tablet 07/11/17 Insulin (Levemir) [Levemir Vial] 10 units SQ HS ml 07/11/17 Insulin (Levemir) [Levemir Vial] 28 units SQ AM ml 07/11/17
[2017-07-11] MEDS: LISINOPRIL 5 MG TABLET (FP) PO SCH (09:33)
[2017-07-11] MEDS: PREGABALIN 75 MG CAPSULE PO SCH (09:33)
[2017-07-11] MEDS: HEPARIN NA (PORCINE) 5,000 UNITS/ML 1ML VIAL SQ SCH (09:33)
[2017-07-11 11:44] VITALS: BP 123/61; PULSE 80; TEMP 98
== END 2017-07-11 11:21 | disposition home or self-care (01) | DRG 300 ==
LOC: JER 15:06 → JERBED 20:10 → J5S 22:33
PROVIDERS: ADMIT Internal Medicine; ATTEND Family Medicine
DX: E11.52 Type 2 diabetes mellitus with diabetic peripheral angiopathy with gangrene (principal); I96 Gangrene, not elsewhere classified; L97.528 Non-pressure chronic ulcer of other part of left foot with other specified severity; E11.621 Type 2 diabetes mellitus with foot ulcer; E11.628 Type 2 diabetes mellitus with other skin complications; I10 Essential (primary) hypertension; E78.5 Hyperlipidemia, unspecified; K29.60 Other gastritis without bleeding; E11.9 Type 2 diabetes mellitus without complications; K80.80 Other cholelithiasis without obstruction; L08.89 Other specified local infections of the skin and subcutaneous tissue; L03.032 Cellulitis of left toe; R23.3 Spontaneous ecchymoses; E11.42 Type 2 diabetes mellitus with diabetic polyneuropathy
CPT/HCPCS: 36415; 71046-TC-FY; 73610-TC-LT-FY; 73630-TC-LT; 75635-TC; 80048; 80053; 82962; 83036; 85025; 85610; 85651; 85730; 86850; 86900; 86901; 87040; 93005; 93010; 93925-TC; 99283-25; G0480; J1644

== ENCOUNTER 2017-07-25 07:04 | Day surgery (SDC) | payer OTHER ==
[2017-07-23 16:08] VITALS: BMI 21.9
[2017-07-25] MEDS ORDERED: LIDOCAINE HCL 1%, 10 MG/ML (20ML VIAL) ONE (08:18)
[2017-07-25] MEDS ORDERED: HEPARIN NA (PORCINE) 5,000 UNITS/ML 1ML VIAL ONE (08:18)
[2017-07-25] MEDS ORDERED: MIDAZOLAM HCL 2 MG/2 ML SINGLE DOSE VIAL ONE (08:57)
[2017-07-25] MEDS ORDERED: ceFAZolin SODIUM 1 GM VIAL IVPB ONE (09:10)
[2017-07-25] MEDS ORDERED: LIDOCAINE HCL 1%, 10 MG/ML (20ML VIAL) NR ONE (09:15)
--- NOTE | 2017-07-25 09:34 | OP ---
Operative Note - Note: Operative Date: 07/25/17 Pre-Operative Diagnosis: left great toe gangrene Operation: Aortogram, LLE angiogram Post-Operative Diagnosis: Same as Pre-op Surgeon: Reinier Cary Anesthesia: Fractional Estimated Blood Loss (mls): 5 Operative Report Dictated: Yes
--- NOTE | 2017-07-25 09:35 | HP ---
Admitting History and Physical - Admission Chief Complaint: left great toe gangrene Limitations to Obtaining History: No Limitations - Past Medical History Cardiovascular: Yes: HTN, Hyperlipdemia Gastrointestinal: Yes: Gastritis Hepatobiliary: Yes: Cholelithiasis Endocrine: Yes: Diabetes Mellitus - Past Surgical History Past Surgical History: Yes: Cholecystectomy - Smoking History Smoking history: Never smoked Have you smoked in the past 12 months: No Aproximately how many cigarettes per day: 0 - Alcohol/Substance Use Hx Alcohol Use: No History of Substance Use: reports: None - Social History ADL: Independent History of Recent Travel: No Home Medications - Allergies Allergies/Adverse Reactions: Allergies Allergy/AdvReac Type Severity Reaction Status Date / Time No Known Allergies Allergy Verified 07/25/17 07:47 - Home Medications Home Medications: Ambulatory Orders Atorvastatin Ca [Lipitor] 80 mg PO HS 05/27/16 Cholecalciferol (Vitamin D3) [Vitamin D3] 1 tab PO WEEKLY 05/27/16 Lisinopril [Prinivil] 5 mg PO DAILY 05/27/16 Pregabalin [Lyrica -] 75 mg PO DAILY 05/27/16 Collagenase Clostridium Hist. [Santyl] 1 applic TP DAILY #90 oint...g. 07/18/17 Insulin Glargine,Hum.rec.anlog [Toantonio Solostgianluca] 55 unit SQ DAILY 07/23/17 Review of Systems - Review of Systems Constitutional: reports: No Symptoms Eyes: reports: No Symptoms HENT: reports: No Symptoms, Ringing in Ears Cardiovascular: reports: No Symptoms Respiratory: reports: No Symptoms Gastrointestinal: reports: No Symptoms Genitourinary: reports: No Symptoms Breasts: reports: No Symptoms Reported Musculoskeletal: reports: Extremity Pain Integumentary: reports: No Symptoms Neurological: reports: No Symptoms Endocrine: reports: No Symptoms Hematology/Lymphatic: reports: No Symptoms Psychiatric: reports: No Symptoms Physical Examination Vital Signs: Vital Signs Temperature 98.1 F 07/25/17 07:42 Pulse Rate 70 07/25/17 07:42 Respiratory Rate 20 07/25/17 07:42 Blood Pressure 122/58 07/25/17 07:42 O2 Sat by Pulse Oximetry (%) 100 07/25/17 07:41 Constitutional: Yes: Well Nourished, No Distress, Calm Eyes: Yes: WNL, Conjunctiva Clear, EOM Intact HENT: Yes: WNL, Atraumatic, Normocephalic Neck: Yes: WNL, Supple, Trachea Midline Cardiovascular: Yes: WNL, Regular Rate and Rhythm Respiratory: Yes: WNL, Regular, CTA Bilaterally Gastrointestinal: Yes: WNL, Normal Bowel Sounds Musculoskeletal: Yes: WNL Extremities: Yes: WNL Edema: No Integumentary: Yes: WNL Neurological: Yes: WNL, Alert, Oriented ...Motor Strength: WNL Psychiatric: Yes: WNL Problem List - Problems (1) Diabetic foot ulcer Code(s): E11.621 - TYPE 2 DIABETES MELLITUS WITH FOOT ULCER; L97.509 - NON- PRESSURE CHRONIC ULCER OTH PRT UNSP FOOT W UNSP SEVERITY Assessment/Plan Left great toe gangrene 1. For angiogram today
[2017-07-25] MEDS ORDERED: ONDANSETRON 4 MG/2 ML VIAL IVPUSH PRN (09:42)
[2017-07-25] MEDS ORDERED: LACTATED RINGERS SOLUTION 1,000 ML IV SCH (09:45)
--- NOTE | 2017-07-25 10:04 | OP ---
DATE OF OPERATION: 07/25/2017 PREOPERATIVE DIAGNOSIS: Left great toe gangrene. POSTOPERATIVE DIAGNOSIS: Left great toe gangrene. PROCEDURE: Aortogram, left lower extremity angiogram. SURGEON: Reinier Arzola DO ANESTHESIA: Fractional. BLOOD LOSS: 5 mL. INDICATIONS: The patient is a 61-year-old female who has diabetes and has a left toe gangrene at the tip. She does not know how she got it. She does not remember injuring it. It was decided that she would need a diagnostic angiogram to see if there is any disease that we can open so that we can get more blood flow down to her foot. The patient came in through ambulatory surgery. The patient was consented for the procedure understanding all risks, benefits, and alternatives and then taken to the operating room. DESCRIPTION OF PROCEDURE: Once in the operating room, she was laid down on the operating room table in a supine manner. The area of the right and left groin were prepped and draped in a sterile surgical manner. We then went ahead and injected 10 mL of lidocaine 1% over the right common femoral artery. We then used our micropuncture needle and punctured the right common femoral artery. Micropuncture wire inserted. A 5-Nauruan sheath was inserted. We then placed a 0.035 floppy guidewire up into the aorta followed by Omni Flush catheter. We then shot an aortogram via hand injection showing that the aorta and the iliac arteries were without any disease. We then used our 0.035 floppy guidewire and went up and over to the left common femoral artery followed by the Omni Flush catheter. We then shot an angiogram of the left lower extremity showing that the common femoral artery, the profunda, the SFA were patent. The popliteal artery was patent. The AT was the only blood vessel that went down into the forefoot. The peroneal and the PT were diseased after the origin. At this point, there was no disease that needed angioplasty. There was no bypassable disease. We brought our Omni Flush catheter up and over. We removed our sheath, pressure was held in the right groin for 5 minutes. After there was no more bleeding, the area was wet and dried, and Dermabond was placed. The patient tolerated the procedure with no complications. Patient transferred to PACU in stable condition. REINIER ARZOLA DO [employer]/[id number]
[2017-07-25 10:48] VITALS: TEMP 97
[2017-07-25 14:02] VITALS: BP 137/64; PULSE 66
== END 2017-07-25 13:20 | disposition home or self-care (01) ==
LOC: JASU-SURG 07:04
PROVIDERS: ATTEND Surgery Vascular Surgery
PROC: B41DYZZ Fluoroscopy of Aorta and Bilateral Lower Extremity Arteries using Other Contrast (ICD-10-PCS; principal; 2017-07-25 09:00)
DX: E11.52 Type 2 diabetes mellitus with diabetic peripheral angiopathy with gangrene (principal); Z79.4 Long term (current) use of insulin
CPT/HCPCS: 76000-TC-FY; 82962; 94760; J1644

== ENCOUNTER 2017-08-27 09:05 | Emergency (ER) | payer OTHER ==
[2017-08-27 09:11] VITALS: BMI 22.4
[2017-08-27] MEDS ORDERED: ALBUTEROL SO4 2.5/IPRATROPIUM 0.5 INH SOL 3 ML VIAL.NEB. NEB ONE ×2 (09:36→09:40)
[2017-08-27] MEDS ORDERED: diphenhydrAMINE HCL 25 MG CAPSULE (FP) PO ONE ×2 (09:36→09:39)
[2017-08-27] MEDS ORDERED: NAPHAZOLINE/PHENIRAMINE OPHTHALMIC 15 ML BOTTLE OU ONE (09:38)
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
[2017-08-27 10:21] VITALS: BP 137/57; PULSE 89; TEMP 97.7
== END 2017-08-27 10:26 | disposition home or self-care (01) ==
LOC: JER 09:05
PROC: 3E0F7GC Introduction of Other Therapeutic Substance into Respiratory Tract, Via Natural or Artificial Opening (ICD-10-PCS; principal; 2017-08-27)
DX: H10.10 Acute atopic conjunctivitis, unspecified eye (principal)
CPT/HCPCS: 99282-25; G0463-25; J7620

== ENCOUNTER 2018-01-01 15:06 | Day surgery (SDC) | payer OTHER ==
[2017-12-31 16:49] VITALS: BMI 24.9
[2018-01-01] MEDS ORDERED: PROPOFOL 20 ML ONE (17:27)
[2018-01-01] MEDS ORDERED: MIDAZOLAM HCL 2 MG/2 ML SINGLE DOSE VIAL ONE (17:27)
[2018-01-01] MEDS ORDERED: ceFAZolin SODIUM 1 GM VIAL ONE (17:36)
--- NOTE | 2018-01-01 18:11 | HP ---
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 She has had a revascularization procedure of the left leg and is now ready for toe amputation. History Source: Patient, Medical Record Limitations to Obtaining History: No Limitations - Past Medical History Allergies/Adverse Reactions: Allergies Allergy/AdvReac Type Severity Reaction Status Date / Time No Known Allergies Allergy Verified 12/31/17 16:39 Cardiovascular: Yes: HTN, Hyperlipdemia Gastrointestinal: Yes: Gastritis Hepatobiliary: Yes: Cholelithiasis Endocrine: Yes: Diabetes Mellitus - Current Medications Current Medications: Home Medications Medication Instructions Recorded Atorvastatin Ca [Lipitor] 80 mg PO HS 05/27/16 Lisinopril [Prinivil] 5 mg PO DAILY 10/13/17 Insulin Glargine,Hum.rec.anlog 50 unit SQ ACDIN 12/31/17 [Sugar [place]more] Satellite Physical Exam - Physical Examination Vital Signs: Vital Signs Period Temp Pulse Resp BP Sys/Lam Pulse Ox Last 24 Hr 97.5 F-97.5 F 90-90 20-20 107-107/60-60 95 General Appearance: Alert & Oriented x3 ENT: Clear Lung: Clear to auscultation Heart: Regular rate & rhythm Abdomen: Soft Extremities: Other (Left foot warm. Open wound 1st toe with exposed bone.) Satellite Impression/Plan - Impression/Plan Impression: Gangrene of left 1st toe. Operative Procedure: Amputation left 1st toe Date to be Performed: 01/01/18
--- NOTE | 2018-01-01 18:12 | OP ---
Operative Note - Note: Operative Date: 01/01/18 Pre-Operative Diagnosis: gangrene left 1st toe Operation: Amputation left 1st toe Findings: Necrosis of distal phalanx left 1st toe Post-Operative Diagnosis: Same as Pre-op Surgeon: Jerry Rendon Anesthesiologist/GEAR MACHINIST: Mateusz Loja Anesthesia: Fractional Specimens Removed: Left 1st toe
[2018-01-01] MEDS ORDERED: ACETAMINOPHEN 325 MG TABLET (FP) PO PRN (18:15)
[2018-01-01] MEDS ORDERED: oxyCODONE HCL 5 MG TABLET PO PRN (18:15)
[2018-01-01 18:30] VITALS: TEMP 97.8
[2018-01-01 20:12] VITALS: BP 139/55; PULSE 76
--- NOTE | 2018-01-01 21:16 | OP ---
DATE OF OPERATION: 01/01/2018 SURGEON: Jerry Rendon MD PROCEDURE: Amputation, left 1st toe. PREOPERATIVE DIAGNOSIS: Gangrene, left 1st toe. POSTOPERATIVE DIAGNOSIS: Gangrene, left 1st toe. ANESTHESIA: Fractional. ANESTHESIOLOGIST: Mateusz Loja MD OPERATIVE FINDINGS: There was an open necrotic wound on the plantar aspect of the left 1st toe. There was fluid in the bone and surrounding, extending to the middle phalanx. OPERATIVE PROCEDURE: Following routine patient identification with site and side verification, intravenous sedation was established. The left foot was prepped with Betadine solution. Timeout was performed. Next, 1% lidocaine was infiltrated around the base of the left 1st toe as a nerve block. An incision was then made around the base of the toe proximal to the area of open wound. The subcutaneous tissues were divided with cautery. The skin was elevated off of the bone with cautery, and the bone was transected in the proximal portion of the distal phalanx. The specimen was removed. The exposed bone was then dissected back to the proximal phalanx which was resected with bone cutter and rongeur. Portions of the joint capsule and tendons were then removed. The wound was cultured. The wound was irrigated with saline. Additional soft tissue debridement was carried out to trim the flaps. The flaps were then approximated with interrupted mattress sutures of 3-0 nylon. A sterile dressing consisting of Xeroform, gauze fluffs, and Kerlix was applied, and the patient was taken to the recovery room in stable condition. Mode SAMANIEGO/[id number]
--- NOTE | 2018-01-05 17:41 | PATH ---
Surgical Pathology Report Patient Name: ANANDA SARABIA [facility]. Rec. #: [id number] /Age/Gender: 1955 (Age: 62) / F Account: [id number] Location: [facility] Taken: 01/01/2018 Received: 01/02/2018 Reported: 01/05/2018 Physicians: Jerry Rendon M.D. Specimen(s) Received GANGRENE LEFT GREATER TOE (FIRST) Clinical History Gangrene of left great toe Final Diagnosis TOE, 1ST/GREAT, AMPUTATION: DIGIT (TOE) WITH ACUTE AND CHRONIC INFLAMMATION, ULCERATION, AND GANGRENOUS NECROSIS INVOLVING SURGICAL MARGIN. ACUTE OSTEOMYELITIS OF UNDERLYING BONE AND INVOLVING SURGICAL MARGIN. Electronically Signed Kierra Doyle M.D. Gross Description Received in formalin labeled "left 1st great toe," is a 3.0 x 2.3 x 1.5 cm toe amputation. The epidermal surface displays a 2.9 x 2.3 cm crook-stallworth, gangrenous lesion involving the underlying bone. The lesion focally involves the skin and soft tissue margin. Buyer Tobacco Head sections are submitted in 3 cassettes as follows: 1-lesion with underlying bone, following decalcification; 2-bone margin, following decalcification; 3-skin and soft tissue margin. 01/02/2018
== END 2018-01-01 20:25 | disposition home or self-care (01) ==
LOC: JASU-SURG 15:06
PROVIDERS: ATTEND Surgery
PROC: 0QBR0ZZ Excision of Left Toe Phalanx, Open Approach (ICD-10-PCS; principal; 2018-01-01 16:30)
DX: E11.52 Type 2 diabetes mellitus with diabetic peripheral angiopathy with gangrene (principal); E11.40 Type 2 diabetes mellitus with diabetic neuropathy, unspecified; I96 Gangrene, not elsewhere classified; M87.878 Other osteonecrosis, left toe(s); Z79.4 Long term (current) use of insulin
CPT/HCPCS: 82962; 87070; 87186; 87205; 88305-TC; 88311-TC

== ENCOUNTER 2020-11-04 18:05 | Emergency (ER) | payer OTHER ==
[2020-11-04 18:20] VITALS: TEMP 97.9; BMI 20.5
[2020-11-04] MEDS ORDERED: ONDANSETRON 4 MG/2 ML VIAL IVPB ONE (18:40)
[2020-11-04] MEDS ORDERED: ACETAMINOPHEN 1000 MG/100 ML VIAL (NON FORMULARY) IVPB ONE (18:40)
[2020-11-04] MEDS ORDERED: INSULIN REGULAR HUMAN 100 UNITS/ML *VIAL SQ ONE ×2 (18:43→21:51)
[2020-11-04] MEDS ORDERED: ACETAMINOPHEN INJECTION 100 ML IVPB ONE (18:45)
[2020-11-04] MEDS ORDERED: SODIUM CHLORIDE 1,000 ML IV SCH (18:45)
[2020-11-04] MEDS ORDERED: INSULIN REGULAR HUMAN 100 UNITS/ML *VIAL ONE ×2 (18:54→21:54)
[2020-11-04] MEDS ORDERED: ONDANSETRON 4 MG/2 ML VIAL ONE (19:03)
[2020-11-04 19:10] LABS: BASO % 0.6 % (0-2.0); EOS % 1.3 % (0-4.5); HEMATOCRIT 37.1 % (32.4-45.2); HEMOGLOBIN 12.2 GM/dl (10.7-15.3); LYMPH % 20.1 % (8-40); MCHC 32.8 g/dl (32.0-36.0); MEAN CELL VOLUME 91.4 fl (80-96); MEAN PLT VOLUME 8.4 fl (7.5-11.1); MONO % 6.1 % (3.8-10.2); NEUT % 71.9 % (42.8-82.8); PLATELET COUNT 300 10^3/uL (134-434); RBC 4.06 M/mm3 (3.60-5.2); RDW 12.6 % (11.6-15.6); WHITE BLOOD COUNT 7.6 K/mm3 (4.0-10.8)
[2020-11-04 19:25] LABS: ACTIVATED PTT 21.7 SECONDS (25.2-36.5)
[2020-11-04 19:27] LABS: ALBUMIN 3.5 g/dl (3.4-5.0); ALK PHOS 89 U/L (45-117); ANION GAP 10 MMOL/L (8-16); BILIRUBIN,TOTAL 0.7 mg/dl (0.2-1); CALCIUM 9.2 mg/dl (8.5-10); CHLORIDE 97 mmol/L (98-107); CO2 25 mmol/L (21-32); CREATININE 0.6 mg/dl (0.55-1.3); SGOT/AST 28 U/L (15-37); SGPT/ALT 38 U/L (13-61); SODIUM 132 mmol/L (136-145); TOT PROT 6.5 g/dl (6.4-8.2)
[2020-11-04 19:32] LABS: GLUCOSE,RANDOM 434 mg/dl (74-106)
[2020-11-04 19:34] LABS: INR 0.88 (0.82-1.09); PROTHROMBIN TIME (PATIENT) 9.9 SEC (10.2-13.0)
[2020-11-04 21:21] VITALS: BP 153/59; PULSE 67
[2020-11-04 23:23] LABS: EPITHELIAL CELLS FEW /hpf
== END 2020-11-04 23:23 | disposition home or self-care (01) ==
LOC: FER 18:05
PROC: 3E0333Z Introduction of Anti-inflammatory into Peripheral Vein, Percutaneous Approach (ICD-10-PCS; principal; 2020-11-04)
PROC: 3E033GC Introduction of Other Therapeutic Substance into Peripheral Vein, Percutaneous Approach (ICD-10-PCS; 2020-11-04)
DX: R51.9 Headache, unspecified (principal); R11.10 Vomiting, unspecified
CPT/HCPCS: 36415; 70450-TC; 80053; 81003; 81015; 82550; 82962; 84484; 85025; 85610; 85730; 93005; 96374; 96375; 99285-25; J0131